=== PATIENT | female | born 1960 | race Caucasian/White ===

== ENCOUNTER 2021-09-06 12:54 | Outpatient (REF) | payer OTHER, SELFPAY | END 2021-09-06 12:55 | disposition home or self-care (01) | LOC: HO.MDS 12:54 | PROVIDERS: PCP Internal Medicine; Visit Provider Psychiatry & Neurology Neurology | DX: G35 Multiple sclerosis (principal) | CPT/HCPCS: 96365; J2930 ==

== ENCOUNTER 2021-09-07 11:37 | Outpatient (REF) | payer OTHER, SELFPAY ==
[2021-09-07 12:50] LABS: Blood Urea Nitrogen 18 mg/dL (9-16); Estimated Glomerular Filt Rate > 60
== END 2021-09-07 11:38 | disposition home or self-care (01) ==
LOC: HO.MDS 11:37
PROVIDERS: PCP Internal Medicine; Visit Provider Psychiatry & Neurology Neurology
DX: G35 Multiple sclerosis (principal)
CPT/HCPCS: 36415; 82565; 84520; 96365; J2930

== ENCOUNTER 2021-09-08 13:31 | Outpatient (REF) | payer OTHER, SELFPAY | END 2021-09-08 13:32 | disposition home or self-care (01) | LOC: HO.MDS 13:31 | PROVIDERS: Visit Provider Psychiatry & Neurology Neurology | DX: G35 Multiple sclerosis (principal) | CPT/HCPCS: 96365; J2930 ==

== ENCOUNTER 2021-09-11 08:33 | Outpatient (REF) | payer OTHER, SELFPAY ==
[2021-09-11 08:49] LABS: MANUAL DIFF FLAG NO
[2021-09-11 09:37] LABS: Appearance Urine CLEAR; Basophils Percent Auto 0.4 % (0-2); Color Urine YELLOW; Eosinophils Absolute Auto 0.4 X10*3/uL (0.0-0.4); Eosinophils Percent Auto 3.3 % (0-4); Glucose Urine UA NEG (NEG); Hematocrit 41.3 % (37.0-47.0); Hemoglobin 12.9 g/dl (12.0-16.0); Imm Gran Abs Auto 0.16 X10*3/uL (0.00-0.03); Imm Gran Pct Auto 1.4 % (0.0-0.4); Leukocyte Esterase Urine NEG (NEG); Lymphocytes Absolute Auto 4.9 X10*3/uL (1.2-4.9); Mean Corpuscular HGB Conc 31.2 g/dl (31.0-35.0); Mean Corpuscular Hemoglobin 28.3 pg (27.0-33.0); Mean Corpuscular Volume 90.6 fL (80.0-98.0); Mean Platelet Volume 9.7 fL (9.4-12.3); Monocytes Absolute Auto 0.7 X10*3/uL (0.1-1.2); Monocytes Percent Auto 5.8 % (2-11); NRBC Pct Auto 0.9 /100WBC (0.0-0.2); Neutrophils Absolute Auto 5.3 x10*3/uL (2.0-8.3); Neutrophils Percent Auto 46.1 % (45-73); Nitrite Urine NEG (NEG); Platelet Count 304 X10*3/uL (160-400); Red Blood Count 4.56 X10*6/uL (4.20-5.50); Red Cell Distribution Width 14.6 % (11.0-16.0); Urine Blood NEG (NEG); Urine Ketones NEG (NEG); Urine Protein NEG (NEG-TRACE); White Blood Count 11.4 X10*3/uL (4.8-10.8)
[2021-09-11 09:46] LABS: Alanine Aminotransferase 21 U/L (0-31); Albumin Level 3.7 g/dL (3.5-5.0); Alkaline Phosphatase 94 U/L (39-117); Anion Gap 11 (12-20); Aspartate Amino Transferase 14 U/L (5-31); Bilirubin Total 0.4 mg/dL (0.0-1.0); Blood Urea Nitrogen 16 mg/dL (9-16); Calcium 8.3 mg/dL (8.4-10.2); Carbon Dioxide 33 mmol/L (22-29); Chloride 103 mmol/L (96-108); Estimated Glomerular Filt Rate > 60; Glucose Random 104 mg/dL (60-115); Potassium 4.1 mmol/L (3.3-5.1); Sodium 143 mmol/L (135-145); Total Protein 6.6 g/dL (6.5-8.0)
== END 2021-09-11 08:34 | disposition home or self-care (01) ==
LOC: HO.LAB 08:33
PROVIDERS: PCP Internal Medicine; Visit Provider Psychiatry & Neurology Neurology
DX: G35 Multiple sclerosis (principal)
CPT/HCPCS: 36415; 80053; 81003; 85025

== ENCOUNTER 2021-09-15 14:13 | Outpatient (REF) | payer OTHER, SELFPAY ==
--- NOTE | ~2021-09-15 | MR_ITS ---
EXAMINATION: MR BRAIN WITHOUT AND WITH CONTRAST CLINICAL INFORMATION: Multiple sclerosis. COMPARISON: Brain MRI from 11/08/2012. CTA head from 09/14/2012. TECHNIQUE: MRI of the brain and cervical spine was obtained using routine sequences without and following the administration of 6.5 mL of Gadavist intravenous contrast. FINDINGS: Brain: There are multiple T2/FLAIR hyperintense lesions consistent with an underlying diagnosis of demyelination. This includes lesions within the subcortical, deep white matter, periventricular, callosal, brainstem, and cerebellar distributions. New Lesions: There appears to have been progression of lesions when compared to CT from 2012. No comparable MRI image is available. Enhancing Lesions: None. Restricted Diffusion: None. T1 Black Holes: Approximately 5-10. Volume Loss: Mild. Additional Findings: No evidence of edema or expansion of the optic nerves. No focal restricted diffusion is seen to suggest acute or subacute cerebral ischemia. No intracranial mass, intra-axial blood products, midline shift, or extra-axial collection is demonstrated. The ventricles and sulcal spaces appear normal. Normal arterial and venous vascular flow voids are present. No signal abnormalities within the superior sagittal or transverse sinuses. Complete opacification of the right maxillary sinus. Moderate mucosal thickening of the remaining paranasal sinuses. No signal abnormalities within the mastoids. Cervical Spine: Reversal the normal cervical lordosis. Minimal degenerative anterolisthesis of C3 on C4 and C4 on C5. Advanced degenerative disc disease at C5-C6 and C6-C7. Moderate degenerative disc disease at C4-C5. Associated mixed Modic type discogenic endplate changes including mild Modic type I discogenic edema from C4-C7. Mild marrow edema within the right-sided C4-C5 facets consistent with degenerative stress reaction. No additional suspicious marrow edema. The vertebral body heights are largely maintained. Faintly increased T2 signal within the right lateral cord at the level of C3. No additional spinal cord signal abnormalities. No abnormal contrast enhancement. Limited evaluation of the soft tissues of the neck without demonstrated abnormalities. The flow voids of the major cervical vessels are maintained. Normal appearance of the cervicomedullary junction and visualized posterior fossa. SPINAL LEVELS: C2-C3: Normal annular contour. There is mild right in the left uncovertebral joint arthropathy. There is severe right and mild left facet joint arthropathy. There is mild right and no left neural foraminal stenosis. There is no spinal canal stenosis. C3-C4: Mild disc-osteophyte complex. There is moderate left and mild right uncovertebral joint arthropathy. There is severe left and mild right facet joint arthropathy. There is severe left and mild right neural foraminal stenosis. There is no spinal canal stenosis. C4-C5: Mild disc-osteophyte complex. There is severe left and mild right uncovertebral joint arthropathy. There is severe left and mild right facet joint arthropathy. There is severe left and mild right neural foraminal stenosis. There is no spinal canal stenosis. C5-C6: Moderate disc-osteophyte complex. There is severe left and moderate right uncovertebral joint arthropathy. There is moderate bilateral facet joint arthropathy. There is severe left and moderate right neural foraminal stenosis. There is moderate spinal canal stenosis. C6-C7: Moderate disc-osteophyte complex. There is moderate bilateral uncovertebral joint arthropathy. There is mild bilateral facet joint arthropathy. There is moderate bilateral neural foraminal stenosis. There is moderate spinal canal stenosis. C7-T1: Mild disc-osteophyte complex. There is mild bilateral uncovertebral joint arthropathy. There is mild bilateral facet joint arthropathy. There is mild left and no right neural foraminal stenosis. There is no spinal canal stenosis. MR/MR cervical spine wo/w con IMPRESSION: 1. Moderate supratentorial and infratentorial white matter changes consistent with underlying diagnosis of demyelination in the appropriate clinical setting. The degree of these changes appears moderately progressed compared to CT evaluation from 2012. No comparable MRI images are available at this time. No restricted diffusion or enhancement to suggest active demyelination. 2. Faint T2 hyperintense lesion within the right lateral cord at the level of C3. No additional spinal cord signal abnormalities. 3. Moderate multilevel degenerative spondyloarthropathy of the cervical spine as described in detail above. Most notably, there is moderate spinal canal stenosis at C5-C6 and C6-C7. Moderate to severe neural foraminal stenoses from C3-C7.
[2021-09-15 14:29] LABS: COVID-19 Test Negative (Negative)
== END 2021-09-15 14:14 | disposition home or self-care (01) ==
LOC: HO.MRI 14:13
PROVIDERS: Visit Provider Psychiatry & Neurology Neurology
DX: G35 Multiple sclerosis (principal)
CPT/HCPCS: 36415; 70553; 72156; 87635; A9585; C9803

== ENCOUNTER 2022-03-16 16:21 | Outpatient (REF) | payer OTHER, SELFPAY ==
[2022-03-16 16:31] LABS: MANUAL DIFF FLAG NO
[2022-03-16 17:05] LABS: Basophils Percent Auto 0.5 % (0-2); Eosinophils Absolute Auto 0.2 X10*3/uL (0.0-0.4); Eosinophils Percent Auto 2.5 % (0-4); Hematocrit 40.6 % (37.0-47.0); Hemoglobin 12.9 g/dl (12.0-16.0); Imm Gran Abs Auto 0.03 X10*3/uL (0.00-0.03); Imm Gran Pct Auto 0.4 % (0.0-0.4); Lymphocytes Absolute Auto 2.9 X10*3/uL (1.2-4.9); Lymphocytes Percent Auto 36.9 % (20-40); Mean Corpuscular HGB Conc 31.8 g/dl (31.0-35.0); Mean Corpuscular Hemoglobin 28.5 pg (27.0-33.0); Mean Corpuscular Volume 89.6 fL (80.0-98.0); Mean Platelet Volume 9.8 fL (9.4-12.3); Monocytes Absolute Auto 0.6 X10*3/uL (0.1-1.2); Monocytes Percent Auto 7.1 % (2-11); Neutrophils Absolute Auto 4.2 x10*3/uL (2.0-8.3); Neutrophils Percent Auto 52.6 % (45-73); Platelet Count 278 X10*3/uL (160-400); Red Blood Count 4.53 X10*6/uL (4.20-5.50); Red Cell Distribution Width 14.9 % (11.0-16.0); White Blood Count 7.9 X10*3/uL (4.8-10.8)
[2022-03-25 21:41] LABS: JCV Antibody INDETERMINATE; JCV Index Value 0.22
[2022-03-25 22:22] LABS: JCV Ab Inhibition FINAL RSLT: NEGATIVE
== END 2022-03-16 16:22 | disposition home or self-care (01) ==
LOC: HO.LAB 16:21
PROVIDERS: PCP Internal Medicine; Visit Provider Psychiatry & Neurology Neurology
DX: G35 Multiple sclerosis (principal)
CPT/HCPCS: 36415; 85025; 86711

== ENCOUNTER 2023-03-22 15:44 | Outpatient (REF) | payer OTHER, SELFPAY ==
[2023-03-22 16:05] LABS: MANUAL DIFF FLAG NO
[2023-03-22 17:21] LABS: Basophils Absolute Auto 0.1 X10*3/uL (0.0-0.2); Basophils Percent Auto 0.6 % (0-2); Eosinophils Absolute Auto 0.3 X10*3/uL (0.0-0.4); Eosinophils Percent Auto 3.2 % (0-4); Hematocrit 39.7 % (37.0-47.0); Hemoglobin 12.5 g/dl (12.0-16.0); Imm Gran Abs Auto 0.04 X10*3/uL (0.00-0.03); Imm Gran Pct Auto 0.5 % (0.0-0.4); Lymphocytes Absolute Auto 3.7 X10*3/uL (1.2-4.9); Lymphocytes Percent Auto 42.5 % (20-40); Mean Corpuscular HGB Conc 31.5 g/dl (31.0-35.0); Mean Corpuscular Hemoglobin 28.5 pg (27.0-33.0); Mean Corpuscular Volume 90.6 fL (80.0-98.0); Mean Platelet Volume 10.4 fL (9.4-12.3); Monocytes Absolute Auto 0.6 X10*3/uL (0.1-1.2); Neutrophils Absolute Auto 4.1 x10*3/uL (2.0-8.3); Neutrophils Percent Auto 46.2 % (45-73); Platelet Count 249 X10*3/uL (160-400); Red Blood Count 4.38 X10*6/uL (4.20-5.50); Red Cell Distribution Width 14.9 % (11.0-16.0); White Blood Count 8.8 X10*3/uL (4.8-10.8)
[2023-03-22 17:31] LABS: Appearance Urine Clear; Color Urine Yellow; Glucose Urine UA Negative (Negative); Leukocyte Esterase Urine Negative (Negative); Nitrite Urine Negative (Negative); PH 5.5 (5.0-9.0); Urine Blood Negative (Negative); Urine Ketones Negative (Negative); Urine Protein Negative (Neg-Trace)
[2023-03-22 17:34] LABS: Bacteria Urine 1+ (None Seen); Hyaline Casts Urine 0-2 /LPF (0-2); RBC Urine 0-2 /HPF (0-2); Squamous Epithelial Cell Urine 0-2 /HPF (0-2); WBC Urine 0-5 /HPF (0-5)
== END 2023-03-22 15:45 | disposition home or self-care (01) ==
LOC: HO.LAB 15:44
PROVIDERS: PCP Internal Medicine; Visit Provider Psychiatry & Neurology Neurology
DX: G35 Multiple sclerosis (principal)
CPT/HCPCS: 36415; 81001; 85025

== ENCOUNTER 2023-04-20 14:16 | Outpatient (REF) | payer OTHER, SELFPAY ==
--- NOTE | ~2023-04-20 | MR_ITS ---
EXAMINATION: MR BRAIN WITHOUT AND WITH CONTRAST CLINICAL INFORMATION: Multiple sclerosis follow up study. Frequent falls. COMPARISON: Prior MRI dated 09/15/2021. TECHNIQUE: Multiplanar, multisequential imaging was obtained without and with intravenous administration of contrast. Intravenous contrast: Gadavist 6.5 mL. FINDINGS: The overall pattern of disease is without significant change. No new dominant white matter lesions are identified. Multiple lesions demonstrate T1 hypointensity, consistent with chronic demyelination. There is no abnormal parenchymal enhancement to suggest active inflammation. Volume loss again noted in the body of the corpus callosum with small callosal-septal interface lesions. No diffusion abnormalities are identified to suggest an acute infarct. No mass effect or midline shift is seen. No extra-axial fluid collections are seen. There is no abnormal enhancement. The gradient acquisition is normal. Moderate diffuse parenchymal volume loss again noted with ex vacuo dilatation of the ventricles. The craniovertebral junction, marrow signal, and remaining midline structures are normal. The orbits and pituitary axis structures appear normal. The major intracranial flow voids at the level of the grindstone of Be[place] are preserved. The dural venous sinus flow voids are maintained. The mastoid air cells are well aerated. There is severe inspissated mucosal opacification of the right maxillary sinus with chronic sclerotic wall thickening, also evident on the previous exam. Mild ethmoid and left sphenoid sinus mucosal thickening also noted. Multilevel ankylosis of the facet joints from the C3 through the C5 levels noted. There is a reversal normal cervical lordosis with a mild anterolisthesis at C4-C5. [id number] loss of disc height partially visualized at the C5-C6 level as well. MR/MR head/brain wo/w con IMPRESSION: No evidence of disease progression. No focal parenchymal enhancement to indicate active inflammation. Moderate generalized parenchymal volume loss, as on prior imaging. Severe chronic mucoid opacification of the right maxillary sinus with chronic sclerotic wall thickening.
== END 2023-04-20 14:17 | disposition home or self-care (01) ==
LOC: HO.MRI 14:16
PROVIDERS: PCP Internal Medicine; Visit Provider Psychiatry & Neurology Neurology
DX: G35 Multiple sclerosis (principal)
CPT/HCPCS: 70553; A9585

== ENCOUNTER 2023-05-22 09:35 | Outpatient (REF) | payer OTHER, SELFPAY ==
--- NOTE | ~2023-05-22 | XR_ITS ---
Examination: X-rays cervical, thoracic and lumbar spine INDICATION: Multiple sclerosis. COMPARISON: MRI of the cervical spine 09/15/2021 TECHNIQUE: 3 views of the cervical spine 2 views of the thoracic spine 3 views of the lumbar spine FINDINGS: There is very mild S-shaped scoliotic curvature in the thoracolumbar spine. Lumbar spine: 5 nonrib-bearing lumbar-type vertebral bodies. Moderate to severe degenerative disc disease at L5-S1 with mild degenerative disc disease throughout the remainder of the lumbar spine. Facet arthropathy in the lower lumbar spine. Thoracic spine: No acute fracture in the thoracic spine. Mild multilevel degenerative disc disease. Mediastinal structures and visualized lungs are unremarkable. Cervical spine: There is reversal of the normal cervical lordosis. There is 3 mm anterolisthesis of C4 on C5. Moderate multilevel degenerative disc disease with marginal osteophyte formation in the cervical spine, greatest in the lower cervical spine. Multilevel facet arthropathy. Lateral masses are symmetric. XR/XR cervical spine 2V IMPRESSION: 1. Moderate to severe degenerative disc disease at L5-S1. 2. Mild multilevel degenerative disc disease in the thoracic spine. 3. Reversal of the normal cervical lordosis. 4. Mild anterolisthesis of C4 on C5. 5. Moderate spondylosis in the cervical spine, greatest in the lower cervical spine. Multilevel facet arthropathy.
--- NOTE | ~2023-05-22 | XR_ITS ---
Examination: X-rays cervical, thoracic and lumbar spine INDICATION: Multiple sclerosis. COMPARISON: MRI of the cervical spine 09/15/2021 TECHNIQUE: 3 views of the cervical spine 2 views of the thoracic spine 3 views of the lumbar spine FINDINGS: There is very mild S-shaped scoliotic curvature in the thoracolumbar spine. Lumbar spine: 5 nonrib-bearing lumbar-type vertebral bodies. Moderate to severe degenerative disc disease at L5-S1 with mild degenerative disc disease throughout the remainder of the lumbar spine. Facet arthropathy in the lower lumbar spine. Thoracic spine: No acute fracture in the thoracic spine. Mild multilevel degenerative disc disease. Mediastinal structures and visualized lungs are unremarkable. Cervical spine: There is reversal of the normal cervical lordosis. There is 3 mm anterolisthesis of C4 on C5. Moderate multilevel degenerative disc disease with marginal osteophyte formation in the cervical spine, greatest in the lower cervical spine. Multilevel facet arthropathy. Lateral masses are symmetric. XR/XR thoracic spine 2V IMPRESSION: 1. Moderate to severe degenerative disc disease at L5-S1. 2. Mild multilevel degenerative disc disease in the thoracic spine. 3. Reversal of the normal cervical lordosis. 4. Mild anterolisthesis of C4 on C5. 5. Moderate spondylosis in the cervical spine, greatest in the lower cervical spine. Multilevel facet arthropathy.
--- NOTE | ~2023-05-22 | XR_ITS ---
Examination: X-rays cervical, thoracic and lumbar spine INDICATION: Multiple sclerosis. COMPARISON: MRI of the cervical spine 09/15/2021 TECHNIQUE: 3 views of the cervical spine 2 views of the thoracic spine 3 views of the lumbar spine FINDINGS: There is very mild S-shaped scoliotic curvature in the thoracolumbar spine. Lumbar spine: 5 nonrib-bearing lumbar-type vertebral bodies. Moderate to severe degenerative disc disease at L5-S1 with mild degenerative disc disease throughout the remainder of the lumbar spine. Facet arthropathy in the lower lumbar spine. Thoracic spine: No acute fracture in the thoracic spine. Mild multilevel degenerative disc disease. Mediastinal structures and visualized lungs are unremarkable. Cervical spine: There is reversal of the normal cervical lordosis. There is 3 mm anterolisthesis of C4 on C5. Moderate multilevel degenerative disc disease with marginal osteophyte formation in the cervical spine, greatest in the lower cervical spine. Multilevel facet arthropathy. Lateral masses are symmetric. XR/XR lumbar spine 2-3V IMPRESSION: 1. Moderate to severe degenerative disc disease at L5-S1. 2. Mild multilevel degenerative disc disease in the thoracic spine. 3. Reversal of the normal cervical lordosis. 4. Mild anterolisthesis of C4 on C5. 5. Moderate spondylosis in the cervical spine, greatest in the lower cervical spine. Multilevel facet arthropathy.
[2023-05-26 23:19] LABS: JCV Antibody NEGATIVE; JCV Index Value 0.19
== END 2023-05-22 09:36 | disposition home or self-care (01) ==
LOC: HO.LAB 09:35
PROVIDERS: Visit Provider Psychiatry & Neurology Neurology
DX: G35 Multiple sclerosis (principal)
CPT/HCPCS: 36415; 72040; 72070; 72100; 86711

== ENCOUNTER 2024-06-11 09:42 | Outpatient (REF) | payer OTHER, SELFPAY ==
--- NOTE | ~2024-06-11 | XR_ITS ---
EXAMINATION: XR DORSAL SPINE XR CERVICAL SPINE CLINICAL INFORMATION: Torticollis. COMPARISON: Multiple prior examinations including most recent cervical spine and dorsal spine series May 2023. TECHNIQUE: 5 views of the cervical spine. 3 views of the dorsal spine. FINDINGS: Cervical Spine: There is straightening and slight reversal of the cervical spine with loss of the usual cervical lordosis but unchanged. There is also convex right curvature at the thoracolumbar junction slightly increased compared to the prior likely related to projection or positioning The disc spaces and facet joints and right neural foramina are not well visualized given the projection and patient positioning obscuring evaluation of these portions of the spine. Persistent degenerative disc changes at C4-C5, C5-C6 and C6-C7, unchanged. Surrounding bones and soft tissues are unremarkable. Dorsal Spine: Vertebral bodies are normally aligned with normal height. Multilevel degenerative changes present, unchanged. Surrounding bone and soft tissues are unremarkable. XR/XR thoracic spine 2V IMPRESSION: CERVICAL SPINE: Multilevel degenerative changes of the cervical spine unchanged. Evaluation is partially limited because of projection and patient positioning. THORACIC SPINE: 1. Mild multilevel spondylosis of the thoracic spine, unchanged. 2. No acute abnormality. Electronically signed by: Natanael Chavis MD 07/04/2024 10:27 PM EDT
--- NOTE | ~2024-06-11 | XR_ITS ---
EXAMINATION: XR DORSAL SPINE XR CERVICAL SPINE CLINICAL INFORMATION: Torticollis. COMPARISON: Multiple prior examinations including most recent cervical spine and dorsal spine series May 2023. TECHNIQUE: 5 views of the cervical spine. 3 views of the dorsal spine. FINDINGS: Cervical Spine: There is straightening and slight reversal of the cervical spine with loss of the usual cervical lordosis but unchanged. There is also convex right curvature at the thoracolumbar junction slightly increased compared to the prior likely related to projection or positioning The disc spaces and facet joints and right neural foramina are not well visualized given the projection and patient positioning obscuring evaluation of these portions of the spine. Persistent degenerative disc changes at C4-C5, C5-C6 and C6-C7, unchanged. Surrounding bones and soft tissues are unremarkable. Dorsal Spine: Vertebral bodies are normally aligned with normal height. Multilevel degenerative changes present, unchanged. Surrounding bone and soft tissues are unremarkable. XR/XR cervical spine 5V IMPRESSION: CERVICAL SPINE: Multilevel degenerative changes of the cervical spine unchanged. Evaluation is partially limited because of projection and patient positioning. THORACIC SPINE: 1. Mild multilevel spondylosis of the thoracic spine, unchanged. 2. No acute abnormality. Electronically signed by: Natanael Chavis MD 07/04/2024 10:27 PM EDT
== END 2024-06-11 09:43 | disposition home or self-care (01) ==
LOC: HO.XRAY 09:42
PROVIDERS: PCP Internal Medicine; Visit Provider Psychiatry & Neurology Neurology
DX: M43.6 Torticollis (principal)
CPT/HCPCS: 72050; 72070

== ENCOUNTER 2025-09-09 09:32 | Outpatient (AMB) | payer OTHER, SELFPAY ==
--- OUTSIDE RECORDS SUMMARY | 2024-03-12 05:30 | XMS_ITS ---
Author Organization [facility] [address] Address [address] [place] [address] Care Team Providers Care Personal Fitness Manager Name Role Phone VERÓNICA JANSEN Unavailable [phone] Encounters Encounter Location Date Provider Diagnosis [facility] [address] [address] 03/12/2024 VERÓNICA JANSEN Plan Of Treatment No Information Progress Notes * Paige HADDADneDOB:[birth year] (65 yo F)Acc No.[id number]:03/12/2024 Patient: Maryse KUMAR Provider: Iman JANSEN NP :1960 A ge:63 Y S ex:Female Date:03/12/2024 Address: [facility] [id number] Subjective: * Chief Complaints: * * Medical History: Objective: * Vitals: Assessment: Plan: * Treatment: * Images: Billing Information: * Visit Code: * Procedure Codes: * Electronic signature of ARIANNA JANSEN on 09/09/2025 at 10:45 AM EST Sign off status: Pending * Provider: Iman JANSEN NP Date: 0 03/12/2024 Generated for Shelley dudley/Bonilla/eTransmitting on: 11/09/2024 10:45 AM EST
--- OUTSIDE RECORDS SUMMARY | 2024-08-06 06:39 | XMS_ITS | Encounter Summary ---
Author Organization [facility] Address [address] [place] [address] Care Team Providers Care Flow Nurse Name Role Phone Valeria Guerra MD Primary Care Provider [phone] Encounter Details Date Type Department Care Team (Late st Contact Info) Description 08/06/2024 7:39 AM EDT Hospital Encounter TH HISTORIC ENCOUNTERS [facility]AST[facility] CONVERSION ONLY Que Parikh MD [address] [place] [address] Social History Tobacco Use Types Packs/Day Years Used Date Smoking Tobacco: Never Smokeless Tobacco: Never Comments Unknown Sex and Gender Information Value Date Recorded Sex Assigned at Not on file Legal Sex Female 8:30 PM EST Gender Identity Not on file Sexual Orientation Not on file documented as of this encounter Plan of Treatment Not on file documented as of this encounter Goals Goal Patient Goal Type Associated Problems Recent Progress Patient-Stated? Author <enter goal here> General On track(10/29/20 11:12 AM EST) Yes Luda Gray, OT Note: I want more strength in my left hand documented as of this encounter Visit Diagnoses Not on filedocumented in this encounter Care Teams Flow Nurse Relationship Specialty Start Date End Date Valeria Guerra MD PCP - General Internal Medicine 06/03/21 09/18/24 documented as of this encounter
--- OUTSIDE RECORDS SUMMARY | 2025-03-14 08:00 | XMS_ITS ---
Author Organization Henri Diane III, MD Address [address] [place] [address] Care Team Providers Care Multi Slide Machine Tender Name Role Phone Valeria Guerra Primary Care Provider Henri Hong III [phone] Sami BOYD, [facility] Unavailable Dr. Henri Hong III Unavailable Allergies Allergen (clinical drug ingredient) Drug/Non Drug Allergy documented on EMR Reaction Allergy Type Onset Date Status amoxicillin Amoxicillin Rash Drug Allergy Act dilan REASON FOR VISIT multiple sclerosis Medications Medication SIG (Take, Route, Frequency, Duration) Notes Start Date End Date Status Provigil 200 MG 1 tablet in the morn ing Orally Twice a day Active Amitriptyline HCl 100 MG 1 tablet at bed time Orally Once a day Active Nuvigil 150 MG 1 tablet Orally Once a day Active ALPRAZolam 0.5 MG 1 tablet Orally Once a day Active Benadryl 25 MG 1 tablet as needed O rally prior to chemo Active Gabapentin 800 MG 1 capsule Orally Thr ee times a day Active Ampyra 10 MG 1 tablet Orally Twic e a day Active Metoprolol Tartrate 25 MG 1 tablet Orall y Twice a day Active Social History Tobacco Use: Social History Observation Description Date Details (start date - stop date) Never Smoker NA - NA Sex Assigned At : Social History Observation Description Sex Assigned At Female Tobacco Use/Smoking Question Answer Notes Patient is a nonsmoker Additional Findings: Tobacco Non-User Aggressive non-smoker Vital Signs Blood pressure systolic 148 mm Hg 03/14/20 25 Blood pressure diastolic 80 mm Hg 025 Heart Rate 100 /min 03/14/2025 Height 61in in 03/14/2025 Weight 147 lbs 03/14/2025 BMI 27.77 kg/m2 03/14/2025 Encounters Encounter Location Date Provider Diagnosis Henri Diane III, MD [address] [place] [address] [place] [address] 03/14/2025 Henri Diane Multiple sclerosis G 35 ; Cerebral aneurysm I67.1 ; Subarachnoid hemorrhage due to ruptured aneurysm I60.8 ; Labyrinthitis H83.09 ; Overweight E66.3 ; History of arthroplasty of left knee Z96.652 and Torticollis M43.6 Assessments Encounter Date Diagnosis (ICD Code) Assessment Notes Treat ment Notes Treatment Clinical Notes 03/14/2025 Multiple sclerosis (ICD-10 - G35) She was treated today with 300 mg of that drug intravenously over one hour without difficulty. She was observed afterwards and had no reactions. 03/14/2025 Cerebral aneurysm (ICD-10 - I67.1) She has had no symptoms from this. 03/14/2025 Subarachnoid hemorrhage due to ruptured aneurysm (ICD-10 - I60.8) She has had no further symptoms of headache or weakness suggestive of intracranial bleeding. 03/14/2025 Labyrinthitis (ICD-10 - H83.09) She has had very little vertigo lately and is doing quite well. She has medication to take if necessary. 03/14/2025 Overweight (ICD-10 - E66.3) Her body mass index is 28. She has gained 5 pounds.We discussed her weight loss strategy in her diet and nutrition. I recommended weight loss at a rate of one half of a pound per week through a diet restricted in fat calories and sodium. 03/14/2025 History of arthroplasty of left knee (ICD-10 - Z96.652) The recent surgery is healing well. 03/14/2025 Torticollis (ICD-10 - M43.6) She remains under treatment with a personal injury law specialist and a neurologist. Plan Of Treatment Medication Medication Name Sig Start Date Stop Date Notes Provigil 200 MG 1 tablet in the morn ing Orally Twice a day Amitriptyline HCl 100 MG 1 tablet at bed time Orally Once a day Nuvigil 150 MG 1 tablet Orally Once a day ALPRAZolam 0.5 MG 1 tablet Orally Once a day Benadryl 25 MG 1 tablet as needed O rally prior to chemo Gabapentin 800 MG 1 capsule Orally Thr ee times a day Ampyra 10 MG 1 tablet Orally Twice a day Metoprolol Tartrate 25 MG 1 tablet Orally Twice a day Next Appt Details Follow Up: 4 Weeks, Reason: OV, Tysabri Provider Name:Henri Diane , 10/07/2025 09:00:00 AM, [address] [place] [address] [address], [place], [address], Provider Name:Henri Diane , 11/04/2025 09:30:00 AM, [address] [place] [address] [address], [place], [address], Procedure Notes * Category Sub-Category Detail Notes Chemotherapy Start and End Time: start, 1:00 pm, end, 2:00 pm Site: left hand Consent: verbal consent was o btained prior to procedure Medications given: Tysabri 300 mg Monitored by: EMILI Bro port flush none route IV Progress Notes * Paige HADDADneDOB:[birth year] (64 yo F)Acc No.[id number]:03/14/2025 PROGRESS NOTE Patient: Maryse KUMAR Provider: Diane Diane MD :1960 A ge:64 Y S ex:Female Date:03/14/2025 Address:[address] [place] [address] [id number] Pcp:Valeria Guerra Subjective: * Chief Complaints: * M ultiple sclerosis * HPI: C OVID-19 Screening: She returns to the office for another intravenous dose of Tysabri monoclonal antibody therapy for chronic relapsing multiple sclerosis.She had no contraindications to treatment. She has been medically stable. She was treated tooday without incident. Questions H ave you had any new onset fever, chills, cough, congestion, sore throat, shortness of breath, muscle aches? N o * ROS: G eneral/Constitutional: pain L eft knee. C hills d enies. F atigue a dmits. F ever d enies. E NT: Decreased hearing d enies. R espiratory: Cough d enies. C ardiovascular: Chest pain with exertion d enies. D yspnea on exertion?denies. S hortness of breath d enies. G astrointestinal: Constipation o ccasional. D ecreased appetite d enies. D iarrhea d enies. H eartburn d enies. N ausea d enies. R ectal bleeding d enies. V omiting d enies. H ematology: bruising d enies. p etechiae d enies. S wollen glands n one have been noted. G enitourinary: Frequent urination a t night. M usculoskeletal: Muscle aches d enies. P ainful joints L eft knee.?Sciatica d enies. W eakness B oth lower extremities. S kin: Itching d enies. R jon d enies. S kin lesion(s)?denies. N eurologic: Difficulty speaking d enies. D izziness d enies.?Headache d enies. L ow back pain d enies. P sychiatric: Depressed mood d enies. * Medical History: * Surgical History: t ubal ligation 2 sections septoplasty, Dr. Cooley * Hospitalization/Major Diagno stic Procedure: D enies Past Hospitalization * Family History: F ather: , Parkinsons, PSP. M other: alive, Osteoarthritis. C hildren: alive.?Son(s): alive. D aughter(s): alive. 1 brother(s) , 1 sister(s) - healthy. 1 son(s) , 1 daughter(s) - healthy. . She has 2 children, Omid, and aDr who are healthy and well. She is not aware of any inherited family cancer syndromes. She is not aware of any family history of mental illness or substance use disorder or addictions. * Social History: T obacco Use: T obacco Use/Smoking P atient is a n onsmoker A dditional Findings: Tobacco Non-User A ggressive non-smoker S he has been to [place] for many years. She lives in [place]. 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. Her first granddaughter, Landry, was born to her daughter Paola in July 2021. * Medications: T akingALPRAZolam 0.5 MG Tablet 1 tablet Orally Once a day Benadryl 25 MG Tablet 1 tablet as needed Orally prior to chemo Ampyra 10 MG Tablet Extended Release 12 Hour 1 tablet Orally Twice a day Metoprolol Tartrate 25 MG Tablet 1 tablet Orally Twice a day Gabapentin 800 MG Tablet 1 capsule Orally Three times a day Nuvigil 150 MG Tablet 1 tablet Orally Once a day Provigil 200 MG Tablet 1 tablet in the morning Orally Twice a day Amitriptyline HCl 100 MG Tablet 1 tablet at bedtime Orally Once a day Medication List reviewed and reconciled with the patientTaking ALPRAZolam 0.5 MG Tablet 1 tablet Orally Once a day Taking Benadryl 25 MG Tablet 1 tablet as needed Orally prior to chemo Taking Ampyra 10 MG Tablet Extended Release 12 Hour 1 tablet Orally Twice a day Taking Metoprolol Tartrate 25 MG Tablet 1 tablet Orally Twice a day Taking Gabapentin 800 MG Tablet 1 capsule Orally Three times a day Taking Nuvigil 150 MG Tablet 1 tablet Orally Once a day Taking Provigil 200 MG Tablet 1 tablet in the morning Orally Twice a day Taking Amitriptyline HCl 100 MG Tablet 1 tablet at bedtime Orally Once a day Medication List reviewed and reconciled with the patient * Allergies: A moxicillin: Rash - Allergyno[Allergies Verified] Objective: * Vitals: H t: 61in, Wt: 147, BMI:27.77, BP: 148/80, HR: 100, Ht-cm: 154.94, Wt-k.68. * Examination: G eneral Examination: GENERAL APPEARANCE: p leasant, well nourished, well developed, in no acute distress, calm and relaxed, overweight, woman. HEAD: a traumatic, normocephalic. EYES: e ron, perrla, anicteric, conjugate. EARS: n ormal. NOSE: s eptum intact. ORAL CAVITY: n ormal, unremarkable. NECK/THYROID: n o jugular venous distention, no carotid bruit, thyroid normal, Pronounced torticollis to the left. LYMPH NODES: n o enlarged lymph nodes,spleen normal. SKIN: n o suspicious lesions, anicteric. HEART: n o clicks, gallops, murmurs, or rubs, regular rhythm, S1, S2 normal, no s3, or vascular bruits. LUNGS: c lear to auscultation . BREASTS: N ot examined. ABDOMEN: b owel sounds normal, no ascites, no organomegaly, no mass, overweight. RECTAL EXAM: n ot examined. MUSCULOSKELETAL: W eakness and spasticity of both lower extremities, uses cane and walker, Pronounced left deviating torticollis. PERIPHERAL PULSES: n ormal. NEUROLOGIC: a lert and oriented, cranial nerves 2-12 grossly intact, deep tendon reflexes 2+ symmetrical, motor strength normal extremities, sensory exam intact, Bilateral weakness both legs with muscle wasting and spasticity, use his device for walking. PSYCH: a lert, oriented. Assessment: * Assessment: 1. M ultiple sclerosis - G35 (Primary) N otes :She was treated today with 300 mg of that drug intravenously over one hour without difficulty. She was observed afterwards and had no reactions. 2 . C erebral aneurysm - I67.1 N otes :She has had no symptoms from this. 3 . S ubarachnoid hemorrhage due to ruptured aneurysm - I60.8 N otes :She has had no further symptoms of headache or weakness suggestive of intracranial bleeding. 4 . L abyrinthitis - H83.09 N otes :She has had very little vertigo lately and is doing quite well. She has medication to take if necessary. 5 . O verweight - E66.3 N otes :Her body mass index is 28. She has gained 5 pounds.We discussed her weight loss strategy in her diet and nutrition. I recommended weight loss at a rate of one half of a pound per week through a diet restricted in fat calories and sodium. 6 . H istory of arthroplasty of left knee - Z96.652 N otes :The recent surgery is healing well. 7 . T orticollis - M43.6 N otes :She remains under treatment with a personal injury law specialist and a neurologist. Plan: * Treatment: * Procedures: C hemotherapy: Start and End Time: s tart, 1:00 pm, end, 2:00 pm. Site: [facility]. Consent: v erbal consent was obtained prior to procedure.? Medications given: T ysabri 300 mg. Monitored by: EMILI Oshea. port flush n one. route I V. * Procedure Codes: 9 6413 CHEMO, IV INFUSION, 1 [id number] NATALIZUMAB INJECTION * Preventive Medicine: Counseling: C are goal follow-up plan: Counseling for abnormal BMI given Y es Above Normal BMI Follow-up D ietary management education, guidance, and counseling, Dietary needs education, Exercise promotion: strength training, Exercise promotion: stretching, Feeding regime, Giving encouragement to exercise, Lifestyle education regarding diet, Nutrition / feeding management, Nutrition therapy, Prescribed activity/exercise education, Prescribed diet education, Prescribed dietary intake, Special diet education, Weight monitoring , Intervention, Order not done: Medical or Other reason not done * Follow Up: 4 Weeks (Reason: OV, Tysabri) * Images: * Sign off status: Completed true * Provider: Diane Diane MD Date: 0 03/14/2025 Generated for Skyleri ng/Fahunterg/eTransmitting on: 1 11/09/2024 10:46 AM EST History and Physical Notes * HPI (History of Present Illness) Category Sub-Category Detail Notes COVID-19 Screening Questions Have you had any new onset fever, chills, cough, congestion, sore throat, shortness of breath, muscle aches?: No Examination Category Sub-Category Detail Notes General Examination GENERAL APPEARANCE: pleasant , well nourished, well developed, in no acute distress, calm and relaxed, overweight, woman HEAD: atraumatic, normocep halic EYES: eomi, perrla, anicte husam, conjugate EARS: normal NOSE: septum intact NECK/THYROID: no jugular venous di stention, no carotid bruit, thyroid normal, Pronounced torticollis to the left HEART: no clicks, gallops, murmurs, or rubs, regular rhythm, S1, S2 normal, no s3, or vascular bruits LUNGS: clear to auscultatio n ABDOMEN: bowel sounds normal, no ascites, no organomegaly, no mass, overweight NEUROLOGIC: alert and oriented, cranial nerves 2-12 grossly intact, deep tendon reflexes 2+ symmetrical, motor strength normal extremities, sensory exam intact, Bilateral weakness both legs with muscle wasting and spasticity, use his device for walking SKIN: no suspicious lesion s, anicteric PERIPHERAL PULSES: normal BREASTS: Not examined MUSCULOSKELETAL: Weakness and spastic ity of both lower extremities, uses cane and walker, Pronounced left deviating torticollis LYMPH NODES: no enlarged lymph no tyson,spleen normal RECTAL EXAM: not examined PSYCH: alert, oriented ORAL CAVITY: normal, unremarkable
--- OUTSIDE RECORDS SUMMARY | 2025-04-14 04:00 | XMS_ITS ---
Author Organization Henri Diane III, MD Address [address] [place] [address] Care Team Providers Care Geomorphology Teacher Name Role Phone Valeria Guerra Primary Care Provider Henri Hong III [phone] Sami BOYD, [facility] Unavailable Dr. Henri Hong III Unavailable Allergies Allergen (clinical drug ingredient) Drug/Non Drug Allergy documented on EMR Reaction Allergy Type Onset Date Status amoxicillin Amoxicillin Rash Drug Allergy Act dilan REASON FOR VISIT multiple sclerosis Medications Medication SIG (Take, Route, Frequency, Duration) Notes Start Date End Date Status Metoprolol Tartrate 25 MG 1 tablet Orall y Twice a day Active Amitriptyline HCl 100 MG 1 tablet at bed time Orally Once a day Active Provigil 200 MG 1 tablet in the morn ing Orally Twice a day Active Nuvigil 150 MG 1 tablet Orally Once a day Active Gabapentin 800 MG 1 capsule Orally Thr ee times a day Active Ampyra 10 MG 1 tablet Orally Twic e a day Active Benadryl 25 MG 1 tablet as needed O rally prior to chemo Active ALPRAZolam 0.5 MG 1 tablet Orally Once a day Active Social History Tobacco Use: Social History Observation Description Date Details (start date - stop date) Never Smoker NA - NA Sex Assigned At : Social History Observation Description Sex Assigned At Female Tobacco Use/Smoking Question Answer Notes Patient is a nonsmoker Additional Findings: Tobacco Non-User Aggressive non-smoker Vital Signs Blood pressure systolic 127 mm Hg 04/14/20 25 Blood pressure diastolic 71 mm Hg 025 Heart Rate 78 /min 04/14/2025 Height 61in in 04/14/2025 Weight 142 lbs 04/14/2025 BMI 26.83 kg/m2 04/14/2025 Encounters Encounter Location Date Provider Diagnosis Henri Diane III, MD [address] [place] [address] [place] [address] 04/14/2025 Henri Diane Multiple sclerosis G 35 ; Cerebral aneurysm I67.1 ; Subarachnoid hemorrhage due to ruptured aneurysm I60.8 ; Overweight E66.3 and Torticollis M43.6 Assessments Encounter Date Diagnosis (ICD Code) Assessment Notes Treatment Notes Treatment Clinical Notes 04/14/2025 Multiple sclerosis (ICD-10 - G35) She was treated today with 300 mg of that drug intravenously over one hour without difficulty. She was observed afterwards and had no reactions. 04/14/2025 Cerebral aneurysm (ICD-10 - I67.1) She has had no symptoms from this. 04/14/2025 Subarachnoid hemorrhage due to ruptured aneurysm (ICD-10 - I60.8) She has had no further symptoms of headache or weakness suggestive of intracranial bleeding. 04/14/2025 Overweight (ICD-10 - E66.3) Her body mass index is 28. She has gained 5 pounds.We discussed her weight loss strategy in her diet and nutrition. I recommended weight loss at a rate of one half of a pound per week through a diet restricted in fat calories and sodium. 04/14/2025 Torticollis (ICD-10 - M43.6) She remains under treatment with a developmental mathematics instructor and a neurologist. Plan Of Treatment Medication Medication Name Sig Start Date Stop Date Notes Metoprolol Tartrate 25 MG 1 tablet Orally Twice a day Amitriptyline HCl 100 MG 1 tablet at bed time Orally Once a day Provigil 200 MG 1 tablet in the morn ing Orally Twice a day Nuvigil 150 MG 1 tablet Orally Once a day Gabapentin 800 MG 1 capsule Orally Thr ee times a day Ampyra 10 MG 1 tablet Orally Twice a day Benadryl 25 MG 1 tablet as needed O rally prior to chemo ALPRAZolam 0.5 MG 1 tablet Orally Once a day Next Appt Details Follow Up: 4 weeks, Reason: Tysabri infusion no testing Provider Name:Henri Lund Roxi , 09/09/2025 10:45:00 AM, [address] [facility] [place], [place], [address], Provider Name:Henri Lund Roxi , 10/07/2025 09:00:00 AM, [address] [place] [address] [address] [place], [address], Provider Name:Henri Lund Roxi , 11/04/2025 09:30:00 AM, [address] [place] [address] [place] [place], [address], Procedure Notes * Category Sub-Category Detail Notes Chemotherapy Start and End Time: start, 9:00 am, end, 10:00 am Site: right hand Consent: verbal consent was o btained prior to procedure Medications given: Tysabri 300 mg Monitored by: EMILI Bro port flush none route IV Progress Notes * Paige HADDADneDOB:[birth year] (65 yo F)Acc No.[id number]:04/14/2025 PROGRESS NOTE Patient: Maryse KUMAR Provider: Diane Diane MD :1960 A ge:65 Y S ex:Female Date:04/14/2025 Address:[address] [place] [address] [id number] Pcp:Valeria Guerra Subjective: * Chief Complaints: * M ultiple sclerosis * HPI: C OVID-19 Screening: She returns for another dose of Tysabri monoclonal antibody therapy for chronic relapsing multiple sclerosis. She was treated today without incident. Questions H ave you had any new onset fever, chills, cough, congestion, sore throat, shortness of breath, muscle aches? N o * ROS: G eneral/Constitutional: pain o nly normal aches and pains. C hills d enies.?Fatigue a dmits. F ever d enies. E [...] have been noted. G enitourinary: Frequent urination d enies. M usculoskeletal: Muscle aches d enies. P ainful joints d enies. S ciatica d enies. W eakness B oth lower extremities uses cane. S kin: Itching d enies. R jon [...] . She has 2 children, Omid, and Dar who are healthy and well. She is [...] Arlyn for many years. She lives in [place]. 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 Her first granddaughter, Landry, was born to [...] Objective: * Vitals: H t: 61in, Wt: 142, BMI:26.83, BP: 127/71, HR: 78, Ht-cm: 154.94, Wt-k.41. * Examination: G eneral Examination: GENERAL APPEARANCE: p leasant, well nourished, well developed, in no acute distress, calm and relaxed, overweight. HEAD: a traumatic, normocephalic. EYES: e ron, perrla, anicteric, conjugate. EARS: n ormal. NOSE: s eptum intact. ORAL CAVITY: n ormal, unremarkable. NECK/THYROID: n o jugular venous distention, no carotid bruit, thyroid normal. LYMPH NODES: n o enlarged lymph nodes,spleen normal. SKIN: n o suspicious lesions, anicteric. HEART: n o clicks, gallops, murmurs, or rubs, regular rhythm, S1, S2 normal, no s3, or vascular bruits. LUNGS: c lear to auscultation . BREASTS: N ot examined. ABDOMEN: b owel sounds normal, no ascites, no organomegaly, no mass. RECTAL EXAM: n ot examined. MUSCULOSKELETAL: M uscle wasting. PERIPHERAL PULSES: n ormal. NEUROLOGIC: a lert and oriented, cranial nerves 2-12 grossly intact, deep tendon reflexes 2+ symmetrical, motor strength normal upper extremities, sensory exam intact, Bilateral lower extremity weakness with spasticity, left sided leaning torticollis. PSYCH: a lert, oriented. Assessment: * Assessment: [...] weakness suggestive of intracranial bleeding. 4 . O verweight - E66.3 N otes :Her body mass index is 28. She has gained 5 pounds.We discussed her weight loss strategy in her diet and nutrition. I recommended weight loss at a rate of one half of a pound per week through a diet restricted in fat calories and sodium. 5 . T orticollis - M43.6 N otes :She remains under treatment with a developmental mathematics instructor and a neurologist. Plan: * Treatment: * Procedures: C hemotherapy: Start and End Time: s tart, 9:00 am, end, 10:00 am. Site: [facility]. Consent: v erbal consent was obtained prior to procedure.? Medications given: T ysabri 300 mg. Monitored by: EMILI Oshea. port flush n one. route I V. * Procedure Codes: 9 6413 CHEMO, IV INFUSION, 1 [id number] NATALIZUMAB INJECTION * Preventive Medicine: Counseling: C [...] reason not done * Follow Up: 4 weeks (Reason: Tysabri infusion no testing) * Images: * Sign off status: Completed true * Provider: Diane Diane MD Date: 0 04/14/2025 Generated for Skyleri octavia/Bonilla/eTransmitting on: 11/09/2024 10:44 AM EST History and Physical Notes * HPI (History of Present Illness) Category Sub-Category Detail Notes COVID-19 Screening Questions Have you had any new onset fever, chills, cough, congestion, sore throat, shortness of breath, muscle aches?: No Examination Category Sub-Category Detail Notes General Examination GENERAL APPEARANCE: pleasant , well nourished, well developed, in no acute distress, calm and relaxed, overweight HEAD: atraumatic, normocep halic EYES: eomi, perrla, anicte husam, conjugate EARS: normal NOSE: septum intact NECK/THYROID: no jugular venous di stention, no carotid bruit, thyroid normal HEART: no clicks, gallops, murmurs, or rubs, regular rhythm, S1, S2 normal, no s3, or vascular bruits LUNGS: clear to auscultatio n ABDOMEN: bowel sounds normal, no ascites, no organomegaly, no mass NEUROLOGIC: alert and oriented, cranial nerves 2-12 grossly intact, deep tendon reflexes 2+ symmetrical, motor strength normal upper extremities, sensory exam intact, Bilateral lower extremity weakness with spasticity, left sided leaning torticollis SKIN: no suspicious lesion s, anicteric PERIPHERAL PULSES: normal BREASTS: Not examined MUSCULOSKELETAL: Muscle wasting LYMPH NODES: no enlarged lymph no tyson,spleen normal RECTAL EXAM: not examined PSYCH: alert, oriented ORAL CAVITY: normal, unremarkable
--- OUTSIDE RECORDS SUMMARY | 2025-05-12 12:30 | XMS_ITS ---
Author Organization Henri Diane III, MD Address [address] [place] [address] Care Team Providers Care Borough Coordinator Name Role Phone Valeria Guerra Primary Care Provider Henri Hong III [phone] Sami BOYD, [facility] Unavailable Dr. Henri Hong III [phone] REASON FOR VISIT multiple sclerosis Social History Sex Assigned At : Social History Observation Description Sex Assigned At Female Encounters Encounter Location Date Provider Diagnosis Henri Diane III, MD [address] [place] [address] [place] [address] 05/12/2025 Henri Diane Plan Of Treatment Next Appt Details Provider Name:Henri Diane , 09/09/2025 10:45:00 AM, [address] [place] [address] [place] [place], [address], Provider Name:Henri Diane , 10/07/2025 09:00:00 AM, [address] [place] [address] [place] [place], [address], Provider Name:Henri Diane , 11/04/2025 09:30:00 AM, [address] [place] [address] [address] [place], [address], Progress Notes * Paige HADDADneDOB:[birth year] (65 yo F)Acc No.[id number]:05/12/2025 PROGRESS NOTE Patient: Maryse KUMAR Provider: Diane Diane MD :1960 A ge:65 Y S ex:Female Date:05/12/2025 Address:[address] [place], [place] [phone] Pcp:Valeria Guerra Subjective: * Chief Complaints: * 1 . Multiple sclerosis. * Medical History: Objective: * Vitals: Assessment: Plan: * Treatment: * Images: * The named appointment provid er may or may not be the originator of this progress note, and it is not deemed complete until electronically signed by the appointment provider. Sign off status: Pending * Provider: Diane Diane MD Date: 0 05/12/2025 Generated for Shelley dudley/Bonilla/eTransmitting on: 1 11/09/2024 10:44 AM EST
--- OUTSIDE RECORDS SUMMARY | 2025-05-19 04:00 | XMS_ITS ---
Author Organization Henri Diane III, MD Address [address] [facility] [place] [address] Care Team Providers Care Assessment Specialist Name Role Phone Valeria Guerra Primary Care Provider Henri Hong III [phone] Sami BOYD, [facility] Unavailable Dr. Henri Hong III Unavailable Allergies Allergen (clinical drug ingredient) Drug/Non Drug Allergy documented on EMR Reaction Allergy Type Onset Date Status amoxicillin Amoxicillin Rash Drug Allergy Act dilan REASON FOR VISIT multiple sclerosis Medications Medication SIG (Take, Route, Frequency, Duration) Notes Start Date End Date Status Ampyra 10 MG 1 tablet Orally Twic e a day Active Metoprolol Tartrate 25 MG 1 tablet Orall y Twice a day Active Gabapentin 800 MG 1 capsule Orally Thr ee times a day Active Nuvigil 150 MG 1 tablet Orally Once a day Active Provigil 200 MG 1 tablet in the morn ing Orally Twice a day Active ALPRAZolam 0.5 MG 1 tablet Orally Once a day Active Benadryl 25 MG 1 tablet as needed O rally prior to chemo Active Amitriptyline HCl 100 MG 1 tablet at bed time Orally Once a day Active Social History Tobacco Use: Social History Observation Description Date Details (start date - stop date) Never Smoker NA - NA Sex Assigned At : Social History Observation Description Sex Assigned At Female Tobacco Use/Smoking Question Answer Notes Patient is a nonsmoker Additional Findings: Tobacco Non-User Aggressive non-smoker Vital Signs Blood pressure systolic 129 mm Hg 05/19/20 25 Blood pressure diastolic 68 mm Hg 025 Heart Rate 82 /min 05/19/2025 Height 61in in 05/19/2025 Weight 145 lbs 05/19/2025 BMI 27.39 kg/m2 05/19/2025 Encounters Encounter Location Date Provider Diagnosis Henri Diane III, MD [address] [place] [address] [place] [address] 05/19/2025 Henri Diane Multiple sclerosis G 35 ; Cerebral aneurysm I67.1 ; Subarachnoid hemorrhage due to ruptured aneurysm I60.8 ; Labyrinthitis H83.09 ; History of arthroplasty of left knee Z96.652 and Torticollis M43.6 Assessments Encounter Date Diagnosis (ICD Code) Assessment Notes Treat ment Notes Treatment Clinical Notes 05/19/2025 Multiple sclerosis (ICD-10 - G35) She was treated today with 300 mg of that drug intravenously over one hour without difficulty. She was observed afterwards and had no reactions. 05/19/2025 Cerebral aneurysm (ICD-10 - I67.1) She has had no symptoms from this. 05/19/2025 Subarachnoid hemorrhage due to ruptured aneurysm (ICD-10 - I60.8) She has had no further symptoms of headache or weakness suggestive of intracranial bleeding. 05/19/2025 Labyrinthitis (ICD-10 - H83.09) She has had very little vertigo lately and is doing quite well. She has medication to take if necessary. 05/19/2025 History of arthroplasty of left knee (ICD-10 - Z96.652) The recent surgery is healing well. 05/19/2025 Torticollis (ICD-10 - M43.6) She remains under treatment with a clinical trials manager and a neurologist. Plan Of Treatment Medication Medication Name Sig Start Date Stop Date Notes Ampyra 10 MG 1 tablet Orally Twice a day Metoprolol Tartrate 25 MG 1 tablet Orally Twice a day Gabapentin 800 MG 1 capsule Orally Thr ee times a day Nuvigil 150 MG 1 tablet Orally Once a day Provigil 200 MG 1 tablet in the morn ing Orally Twice a day ALPRAZolam 0.5 MG 1 tablet Orally Once a day Benadryl 25 MG 1 tablet as needed O rally prior to chemo Amitriptyline HCl 100 MG 1 tablet at bed time Orally Once a day Next Appt Details Follow Up: 4 Weeks, Reason: Tysabri no tests Provider Name:Henri Diane , 10/07/2025 09:00:00 AM, [address] [place] [address] [address], [place], [address], Provider Name:Henri Lund Diane , 11/04/2025 09:30:00 AM, [address] [place] [address] [address], [place], [address], Progress Notes * Paige HADDADneDOB:[birth year] (65 yo F)Acc No.[id number]:05/19/2025 PROGRESS NOTE Patient: Maryse KUMAR Provider: Diane Diane MD :1960 A ge:65 Y S ex:Female Date:05/19/2025 Address:[address] [place] [address] [id number] Pcp:Valeria Guerra Subjective: * Chief Complaints: * M ultiple sclerosis * HPI: C OVID-19 Screening: She returns to the office today for another infusion of Tysabri monoclonal antibody therapy for chronic relapsing multiple sclerosis. There was no contraindication to treatment. Treatment was well and there were no incident. She will return in 1 month. Questions H ave you had any new onset fever, chills, cough, congestion, sore throat, shortness of breath, muscle aches? N o * ROS: G eneral/Constitutional: pain T orticollis, otherwise only normal aches and pains.?Chills d enies. F atigue a dmits. F [...] urination d enies. M usculoskeletal: Muscle aches N ivy with torticollis head turned to the left. P ainful joints d enies. S ciatica d enies. W eakness d enies. ? S kin: Itching d enies. R jon [...] Arlyn for many years. She lives in [place]. 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 Her first granddaughter, Landry, [...] Objective: * Vitals: H t: 61in, Wt: 145, BMI:27.39, BP: 129/68, HR: 82, Ht-cm: 154.94, Wt-k.77. * Examination: G eneral Examination: GENERAL APPEARANCE: [...] overweight. RECTAL EXAM: n ot examined. MUSCULOSKELETAL: M uscle wasting both legs, torticollis to the left,. PERIPHERAL PULSES: n ormal. NEUROLOGIC: a lert and oriented, cranial nerves 2-12 grossly intact, deep tendon reflexes 2+ symmetrical, motor strength normal upper extremities, sensory exam intact, Bilateral lower extremity weakness with spasticity, uses cane. PSYCH: a lert, oriented. Assessment: * Assessment: [...] medication to take if necessary. 5 . H istory of arthroplasty of left knee - Z96.652 N otes :The recent surgery is healing well. 6 . T orticollis - M43.6 N otes :She remains under treatment with a clinical trials manager and a neurologist. Plan: * Treatment: * Procedure Codes: 9 6413 CHEMO, IV INFUSION, 1 [id number] NATALIZUMAB INJECTION * Preventive Medicine: Counseling: C are goal follow-up plan: Counseling for abnormal BMI given Y es Above Normal BMI Follow-up D ietary management education, guidance, and counseling, Dietary needs education * Follow Up: 4 Weeks (Reason: Tysabri no tests) * Images: * Sign off status: Completed true * Provider: Diane Diane MD Date: 0 05/19/2025 Generated for Shelley dudley/Bonilla/Tonosmitting on: 11/09/2024 10:45 AM EST History and Physical Notes * [...] intact, Bilateral lower extremity weakness with spasticity, uses cane SKIN: no suspicious lesion s, anicteric PERIPHERAL PULSES: normal BREASTS: Not examined MUSCULOSKELETAL: Muscle wasting both legs, torticollis to the left, LYMPH NODES: no enlarged lymph no tyson,spleen normal RECTAL EXAM: not examined PSYCH: alert, oriented ORAL CAVITY: normal, unremarkable
--- OUTSIDE RECORDS SUMMARY | 2025-06-17 12:45 | XMS_ITS ---
Author Organization Henri Diane III, MD Address [address] [facility] [address] Care Team Providers Care Chemical Pathologist Name Role Phone Valeria Guerra Primary Care Provider Henri Hong III [phone] Sami BOYD, [facility] Unavailable Dr. Henri Hong III [phone] REASON FOR VISIT multiple sclerosis Social History Sex Assigned At : Social History Observation Description Sex Assigned At Female Encounters Encounter Location Date Provider Diagnosis Henri Diane III, MD [address] [place] [address] [place] [address] 06/17/2025 Henri Diane Plan Of Treatment Next Appt Details Provider Name:Henri Diane , 09/09/2025 10:45:00 AM, [address] [place] [address] [place], [address], Provider Name:Henri Diane , 10/07/2025 09:00:00 AM, [address] [place] [address] [place], [address], Provider Name:Henri Diane , 11/04/2025 09:30:00 AM, [address] [place] [address] [place], [address], Progress Notes * Paige HADDADneDOB:[birth year] (65 yo F)Acc No.[id number]:06/17/2025 PROGRESS NOTE Patient: Maryse KUMAR Provider: Diane Diane MD :1960 A ge:65 Y S ex:Female Date:06/17/2025 Address:[address] [place], [place] [id number] Pcp:Valeria Guerra Subjective: * Chief Complaints: * [...] * Provider: Diane Diane MD Date: 0 06/17/2025 Generated for Shelley dudley/Bonilla/eTallegrasmitting on: 1 11/09/2024 10:44 AM EST
--- OUTSIDE RECORDS SUMMARY | 2025-06-18 04:00 | XMS_ITS ---
Author Organization Henri Diane III, MD Address [address] [facility] [place] [address] Care Team Providers Care Doctor Of Dental Surgery Name Role Phone Valeria Guerra Primary Care Provider Henri Hong III [phone] Sami BOYD, [facility] Unavailable Dr. Henri Hong III Unavailable [phone] Allergies Allergen (clinical drug ingredient) Drug/Non Drug Allergy documented on EMR Reaction Allergy Type Onset Date Status amoxicillin Amoxicillin Rash Drug Allergy Act dilan REASON FOR VISIT multiple sclerosis Medications Medication SIG (Take, Route, Frequency, Duration) Notes Start Date End Date Status Gabapentin 800 MG 1 capsule Orally Thr ee times a day Active Metoprolol Tartrate 25 MG 1 tablet Orall y Twice a day Active Provigil 200 MG 1 tablet in the morn ing Orally Twice a day Active Nuvigil 150 MG 1 tablet Orally Once a day Active Amitriptyline HCl 100 MG 1 tablet at bed time Orally Once a day Active Ampyra 10 MG 1 [...] Aggressive non-smoker Vital Signs Blood pressure systolic 128 mm Hg 06/18/20 25 Blood pressure diastolic 72 mm Hg 025 Heart Rate 86 /min 06/18/2025 Height 61in in 06/18/2025 Weight 146 lbs 06/18/2025 BMI 27.58 kg/m2 06/18/2025 Encounters Encounter Location Date Provider Diagnosis Henri Diane III, MD [address] [place] [address] [place] [address] 06/18/2025 Henri Diane Multiple sclerosis G 35 ; Cerebral aneurysm I67.1 ; Subarachnoid hemorrhage due to ruptured aneurysm I60.8 ; Overweight E66.3 ; History of arthroplasty of left knee Z96.652 and Torticollis M43.6 Assessments Encounter Date Diagnosis (ICD Code) Assessment Notes Treatment Notes Treatment Clinical Notes 06/18/2025 Multiple sclerosis (ICD-10 - G35) She was treated today with 300 mg of that drug intravenously over one hour without difficulty. She was observed afterwards and had no reactions. 06/18/2025 Cerebral aneurysm (ICD-10 - I67.1) She has had no symptoms from this. 06/18/2025 Subarachnoid hemorrhage due to ruptured aneurysm (ICD-10 - I60.8) She has had no further symptoms of headache or weakness suggestive of intracranial bleeding. 06/18/2025 Overweight (ICD-10 - E66.3) Her body mass index is 28. She has gained 5 pounds.We discussed her weight loss strategy in her diet and nutrition. I recommended weight loss at a rate of one half of a pound per week through a diet restricted in fat calories and sodium. 06/18/2025 History of arthroplasty of left knee (ICD-10 - Z96.652) The recent surgery is healing well. 06/18/2025 Torticollis (ICD-10 - M43.6) She remains under treatment with a tangled yarn worker and a neurologist. Plan Of Treatment Medication Medication Name Sig Start Date Stop Date Notes Gabapentin 800 MG 1 capsule Orally Thr ee times a day Metoprolol Tartrate 25 MG 1 tablet Orally Twice a day Provigil 200 MG 1 tablet in the morn ing Orally Twice a day Nuvigil 150 MG 1 tablet Orally Once a day Amitriptyline HCl 100 MG 1 tablet at bed time Orally Once a day Ampyra 10 MG 1 tablet Orally Twice a day Benadryl 25 MG 1 tablet as needed O rally prior to chemo ALPRAZolam 0.5 MG 1 tablet Orally Once a day Next Appt Details Follow Up: 4 Weeks, Reason: Tysabri no tests Provider Name:Henri Lund Roxi , 09/09/2025 10:45:00 AM, [address] [facility] [address], [place], [address], Provider Name:Henri Lund Roxi , 10/07/2025 09:00:00 AM, [address] [facility] [address], [place], [address], Provider Name:Henri Lund Roxi , 11/04/2025 09:30:00 AM, [address] [place] [address] [address], [place], [address], Procedure Notes * Category Sub-Category Detail Notes Chemotherapy Start and End Time: start, 9:00 am, end, 10:00 am Site: right hand Consent: verbal consent was o btained prior to procedure Medications given: Tysabri 300 mg Monitored by: EMILI Bro route IV Progress Notes * Paige TATUMneDOB:[birth year] (65 yo F)Acc No.[id number]:06/18/2025 PROGRESS NOTE Patient: Maryse KUMAR Provider: Diane Diane MD :1960 A ge:65 Y S ex:Female Date:06/18/2025 Address:[address] [place] [address] [id number] Pcp:Valeria Guerra Subjective: * Chief Complaints: * M ultiple sclerosis * HPI: v : She returns to the office for another intravenous dose of Tysabri monoclonal antibody therapy for chronic relapsing multiple sclerosis. Since her last visit she has been well. * ROS: G eneral/Constitutional: pain L eft knee, otherwise only normal aches and pains.?Chills d [...] ciatica d enies. W eakness B oth legs. S kin: Itching d enies. R jon [...] Arlyn for many years. She lives in [place]. 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 Her first granddaughter, Landry, was born to [...] Objective: * Vitals: H t: 61in, Wt: 146, BMI:27.58, BP: 128/72, HR: 86, Ht-cm: 154.94, Wt-k.22. * Examination: G eneral Examination: GENERAL APPEARANCE: p leasant, well nourished, well developed, in no acute distress, calm and relaxed: overweight: woman. HEAD: a traumatic, normocephalic. EYES: e ron, perrla, anicteric, conjugate. EARS: n ormal. NOSE: s eptum intact. ORAL CAVITY: n ormal, unremarkable. NECK/THYROID: n o jugular venous distention, no carotid bruit, thyroid normal, Torticollis to the left. LYMPH NODES: n o enlarged lymph nodes,spleen normal. SKIN: n o suspicious lesions, anicteric. HEART: n o clicks, gallops, murmurs, or rubs, regular rhythm, S1, S2 normal, no s3, or vascular bruits. LUNGS: c lear to auscultation . BREASTS: N ot examined. ABDOMEN: b owel sounds normal, no ascites, no organomegaly, no mass: overweight. RECTAL EXAM: n ot examined. MUSCULOSKELETAL: no clubbing, cyanosis or edema, Muscle wasting both legs. PERIPHERAL PULSES: n ormal. NEUROLOGIC: a lert and oriented, cranial nerves 2-12 grossly intact, deep tendon reflexes 2+ symmetrical, motor strength normal upper extremities, sensory exam intact, Bilateral lower extremity, spasticity and weakness, uses cane. PSYCH: a lert, oriented: thought process logical, goal directed: alert, oriented. Assessment: * Assessment: 1. M ultiple [...] in fat calories and sodium. 5 . H istory of arthroplasty of left knee - Z96.652 N otes :The recent surgery is healing well. 6 . T orticollis - M43.6 N otes :She remains under treatment with a tangled yarn worker and a neurologist. Plan: * Treatment: * Procedures: C hemotherapy: Start and End Time: s tart, 9:00 am, end, 10:00 am. Site: [facility]. Consent: v erbal consent was obtained prior to procedure.? Medications given: T ysabri 300 mg. Monitored by: EMILI Oshea. route I V. * Procedure Codes: 9 6413 CHEMO, IV INFUSION, 1 [id number] NATALIZUMAB INJECTION * Preventive Medicine: Counseling: C [...] done * Follow Up: 4 Weeks (Reason: Tysabri no tests) * Images: * Sign off status: Completed true * Provider: Diane Diane MD Date: 0 06/18/2025 Generated for Shelley dudley/Bonilla/Evelyne on: 11/09/2024 10:44 AM EST History and Physical Notes * Examination Category Sub-Category Detail Notes General Examination GENERAL APPEARANCE: pleasant , well nourished, well developed, in no acute distress, calm and relaxed: overweight: woman HEAD: atraumatic, normocep halic EYES: eomi, perrla, anicte husam, conjugate EARS: normal NOSE: septum intact NECK/THYROID: no jugular venous di stention, no carotid bruit, thyroid normal, Torticollis to the left HEART: no clicks, gallops, murmurs, or rubs, regular rhythm, S1, S2 normal, no s3, or vascular bruits LUNGS: clear to auscultatio n ABDOMEN: bowel sounds normal, no ascites, no organomegaly, no mass: overweight NEUROLOGIC: alert and oriented, cranial nerves 2-12 grossly intact, deep tendon reflexes 2+ symmetrical, motor strength normal upper extremities, sensory exam intact, Bilateral lower extremity, spasticity and weakness, uses cane SKIN: no suspicious lesion s, anicteric PERIPHERAL PULSES: normal BREASTS: Not examined MUSCULOSKELETAL: no clubbing, cyanosi s or edema, Muscle wasting both legs LYMPH NODES: no enlarged lymph no tyson,spleen normal RECTAL EXAM: not examined PSYCH: alert, oriented: tho ught process logical, goal directed: alert, oriented ORAL CAVITY: normal, unremarkable
--- OUTSIDE RECORDS SUMMARY | 2025-06-18 12:15 | XMS_ITS ---
Author Organization Henri Diane III, MD Address [address] [place] [address] [place] [address] Care Team Providers Care Digital Art Director Name Role Phone Valeria Guerra Primary Care Provider Henri Hong III [phone] Sami BOYD, [facility] Unavailable Dr. Henri Hong III REASON FOR VISIT multiple sclerosis Social History Sex Assigned At : Social History Observation Description Sex Assigned At Female Encounters Encounter Location Date Provider Diagnosis Henri Diane III, MD [address] [place] [address] [place] [address] 06/18/2025 Henri Diane Plan Of Treatment Next Appt Details Provider Name:Henri Diane , 10/07/2025 09:00:00 AM, [address] [place] [address] [place], [address], Provider Name:Henri Diane , 11/04/2025 09:30:00 AM, [address] [place] [address] [place] [place], [address], Progress Notes * Lorenzo HADDADOB:[birth year] (65 yo F)Acc No.[id number]:06/18/2025 PROGRESS NOTE Patient: Catherine Maryse GUTIERREZ Provider: Diane Diane MD :1960 A ge:65 Y S ex:Female Date:06/18/2025 Address:[id number] Pcp:Valeria Guerra Subjective: * Chief Complaints: * [...] 0 06/18/2025 Generated for Shelley dudley/Bonilla/Evelyne on: 1 11/09/2024 10:46 AM EST
--- OUTSIDE RECORDS SUMMARY | 2025-07-08 04:15 | XMS_ITS ---
Author Organization [facility] Address [address] [place] [address] Care Team Providers Care Train Inspector Name Role Phone Valeria Guerra Primary Care Provider Niya Tay Unavailable [phone] Encounters Encounter Location Date Provider Diagnosis [address] [address] 07/08/2025 Niya Hull Plan Of Treatment Next Appt Details Provider Name:Niya powell, 09/19/2025 09:30:00 AM, [address] [place] [address], [address], Progress Notes * KAYLIPaige OGLESBYneDOB:[birth year] (65 yo F)Acc No.[id number]:07/08/2025 Progress Note Patient: Maryse KUMAR Provider: Lisa Hull DPM :1960 A ge:65 Y S ex:Female Date:07/08/2025 Address: [address] [id number] Pcp:Valeria Guerra Subjective: * Chief Complaints: * * Medical History: Objective: * Vitals: Assessment: Plan: * Treatment: * Images: * The named appointment provid er may or may not be the originator of this progress note, and it is not deemed complete until electronically signed by the appointment provider. Sign off status: Pending * Provider: Lisa Hull DPM Date: 0 07/08/2025 Generated for Shelley dudley/Bonilla/Evelyne on: 1 11/09/2024 10:46 AM EST
--- OUTSIDE RECORDS SUMMARY | 2025-07-15 04:00 | XMS_ITS ---
Author Organization Henri Diane III, MD Address [address] [place] [address] Care Team Providers Care Wood Fuel Pelletizer Name Role Phone Valeria Guerra Primary Care Provider Henri Hong III [phone] Sami BOYD, [facility] Unavailable Dr. [...] bed time Orally Once a day Active ALPRAZolam 0.5 MG 1 tablet Orally Once a day Active Benadryl 25 MG 1 tablet as needed O rally prior to chemo Active Ampyra 10 MG 1 tablet Orally [...] Signs Blood pressure systolic 128 mm Hg 07/15/20 25 Blood pressure diastolic 75 mm Hg 025 Heart Rate 81 /min 07/15/2025 Height 61in in 07/15/2025 Weight 146 lbs 07/15/2025 BMI 27.58 kg/m2 07/15/2025 Encounters Encounter Location Date Provider Diagnosis Henri Diane III, MD [address] [place] [address] [place], [place] [address] 07/15/2025 Henri Diane Multiple sclerosis G 35 ; Cerebral aneurysm I67.1 ; Labyrinthitis H83.09 ; Torticollis M43.6 and History of arthroplasty of left knee Z96.652 Assessments Encounter Date Diagnosis (ICD Code) Assessment Notes Treat ment Notes Treatment Clinical Notes 07/15/2025 Multiple sclerosis (ICD-10 - G35) She was treated today with 300 mg of that drug intravenously over one hour without difficulty. She was observed afterwards and had no reactions. 07/15/2025 Cerebral aneurysm (ICD-10 - I67.1) She has had no symptoms from this. 07/15/2025 Labyrinthitis (ICD-10 - H83.09) She has had very little vertigo lately and is doing quite well. She has medication to take if necessary. 07/15/2025 Torticollis (ICD-10 - M43.6) She remains under treatment with a coat operator insulator and a neurologist. 07/15/2025 History of arthroplasty of left knee (ICD-10 - Z96.652) The recent surgery is healing well. Plan Of Treatment Medication Medication Name Sig Start Date Stop Date Notes Gabapentin 800 MG 1 capsule Orally Thr ee times a day Nuvigil 150 MG 1 tablet Orally Once a day Provigil 200 MG 1 tablet in the morn ing Orally Twice a day Amitriptyline HCl 100 MG 1 tablet at bed time Orally Once a day ALPRAZolam 0.5 MG 1 tablet Orally Once a day Benadryl 25 MG 1 tablet as needed O rally prior to chemo Ampyra 10 MG 1 tablet Orally Twice a day Metoprolol Tartrate 25 MG 1 tablet Orally Twice a day Next Appt Details Follow Up: 4 Weeks, Reason: Tysabri infusion no tests Provider Name:Henri Cruzrne , 10/07/2025 09:00:00 AM, [address] [place] [address] [address], [place], [address], Provider Name:Henri Lund Roxi , 11/04/2025 09:30:00 AM, [address] [place] [address] [address], [place], [address], Procedure Notes * Category Sub-Category Detail Notes Chemotherapy Start and End Time: start, 9:00 am, end, 10:00 am Site: left arm Consent: verbal consent was o btained prior to procedure Medications given: Tysabri 300 mg Monitored by: EMILI Bro route IV Progress Notes * Paige TATUMneDOB:[birth year] (65 yo F)Acc No.[id number]:07/15/2025 PROGRESS NOTE Patient: Paige KUMARne Provider: Diane Diane MD :1960 A ge:65 Y S ex:Female Date:07/15/2025 Address:[address] [place] [id number] Pcp:Valeria Guerra Subjective: * Chief Complaints: * M ultiple sclerosis * HPI: C OVID-19 Screening: She returns for another dose of Tysabri monoclonal antibody therapy for chronic relapsing multiple sclerosis. She has been well this month. There were no contraindications for treatment. Questions H ave you had any new [...] t ubal ligation 2 sections septoplasty, Dr. Cooely * Hospitalization/Major Diagno stic Procedure: D enies [...] Arlyn for many years. She lives in [place]. 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. Her first granddaughter, Landry, was born to [...] H t: 61in, Wt: 146, BMI:27.58, BP: 128/75, HR: 81, Ht-cm: 154.94, Wt-k.22. * Examination: G eneral Examination: GENERAL APPEARANCE: p leasant, well nourished, well developed, in no acute distress, calm and relaxed: overweight: woman. HEAD: a traumatic, normocephalic, Torticollis to the left.? EYES: e ron, perrla, anicteric, conjugate. EARS: [...] n ot examined. MUSCULOSKELETAL: W eakness and muscle wasting both lower extremities, uses device. PERIPHERAL PULSES: n ormal. NEUROLOGIC: a lert and oriented, cranial nerves 2-12 grossly intact, deep tendon reflexes 2+ symmetrical, motor strength normal upper extremities, sensory exam intact, Weakness and spasticity lower extremities. PSYCH: a lert, oriented. Assessment: * Assessment: 1. M ultiple sclerosis - G35 (Primary) N otes :She was treated today with 300 mg of that drug intravenously over one hour without difficulty. She was observed afterwards and had no reactions. 2 . C erebral aneurysm - I67.1 N otes :She has had no symptoms from this. 3 . L abyrinthitis - H83.09 N otes :She has had very little vertigo lately and is doing quite well. She has medication to take if necessary. 4 . T orticollis - M43.6 N otes :She remains under treatment with a coat operator insulator and a neurologist. 5 . H istory of arthroplasty of left knee - Z96.652 N otes :The recent surgery is healing well. Plan: * Treatment: * Procedures: C hemotherapy: Start and End Time: s tart, 9:00 am, end, 10:00 am. Site: [facility]. Consent: v erbal consent was obtained prior to procedure.? Medications given: T ysabri 300 mg. Monitored by: EMILI Oshea. route I V. * Procedure Codes: 9 6413 CHEMO, IV INFUSION, 1 [id number] NATALIZUMAB INJECTION * Preventive Medicine: Counseling: C [...] * Follow Up: 4 Weeks (Reason: Tysabri infusion no tests) * Images: * Sign off status: Completed true * Provider: Diane Diane MD Date: 0 07/15/2025 Generated for Shelley dudley/Faxing/eTransmitting on: 1 11/09/2024 10:45 AM EST History and Physical [...] and relaxed: overweight: woman HEAD: atraumatic, normocep halic, Torticollis to the left EYES: eomi, perrla, anicte husam, conjugate EARS: [...] strength normal upper extremities, sensory exam intact, Weakness and spasticity lower extremities SKIN: no suspicious lesion s, anicteric PERIPHERAL PULSES: normal BREASTS: Not examined MUSCULOSKELETAL: Weakness and muscle wasting both lower extremities, uses device LYMPH NODES: no enlarged lymph no tyson,spleen normal RECTAL EXAM: not examined PSYCH: alert, oriented ORAL CAVITY: normal, unremarkable
--- OUTSIDE RECORDS SUMMARY | 2025-08-11 04:00 | XMS_ITS ---
Author Organization Henri Diane III, MD Address [address] [address] Care Team Providers Care Parcel Post Order Clerk Name Role Phone Valeria Guerra Primary Care Provider Henri Hong III [phone] Sami BOYD, [facility] Unavailable Dr. Henri Hong III Unavailable Allergies Allergen (clinical drug ingredient) Drug/Non Drug Allergy documented on EMR Reaction Allergy Type Onset Date Status amoxicillin Amoxicillin Rash Drug Allergy Act dilan REASON FOR VISIT multiple sclerosis Medications Medication SIG (Take, Route, Frequency, Duration) Notes Start Date End Date Status Benadryl 25 MG 1 tablet as needed [...] tablet Orally Twic e a day Active Gabapentin 800 MG 1 [...] Aggressive non-smoker Vital Signs Blood pressure systolic 134 mm Hg 08/11/20 25 Blood pressure diastolic 76 mm Hg 025 Heart Rate 84 /min 08/11/2025 Height 61in in 08/11/2025 Weight 148 lbs 08/11/2025 BMI 27.96 kg/m2 08/11/2025 Encounters Encounter Location Date Provider Diagnosis Henri Diane III, MD [address] [place] [address] [place] [address] 08/11/2025 Henri Diane Multiple sclerosis G 35 ; Overweight E66.3 ; Cerebral aneurysm I67.1 ; Subarachnoid hemorrhage due to ruptured aneurysm I60.8 ; History of arthroplasty of left knee Z96.652 and Torticollis M43.6 Assessments Encounter Date Diagnosis (ICD Code) Assessment Notes Treatment Notes Treatment Clinical Notes 08/11/2025 Multiple sclerosis (ICD-10 - G35) She was treated today with 300 mg of that drug intravenously over one hour without difficulty. She was observed afterwards and had no reactions. 08/11/2025 Overweight (ICD-10 - E66.3) Her body mass index is 28. She has gained 5 pounds.We discussed her weight loss strategy in her diet and nutrition. I recommended weight loss at a rate of one half of a pound per week through a diet restricted in fat calories and sodium. 08/11/2025 Cerebral aneurysm (ICD-10 - I67.1) She has had no symptoms from this. 08/11/2025 Subarachnoid hemorrhage due to ruptured aneurysm (ICD-10 - I60.8) She has had no further symptoms of headache or weakness suggestive of intracranial bleeding. 08/11/2025 History of arthroplasty of left knee (ICD-10 - Z96.652) The recent surgery is healing well. 08/11/2025 Torticollis (ICD-10 - M43.6) She remains under treatment with a habilitation training specialist and a neurologist.Torticol lis is improving Plan Of Treatment Medication Medication Name Sig Start Date Stop Date Notes Benadryl 25 MG 1 tablet as needed [...] Appt Details Follow Up: 4 Weeks, Reason: ov Provider Name:Henri Cruzrne , 09/09/2025 10:45:00 AM, [address] [place] [address] [address], [place], [address], Provider Name:Henri Lund Roxi , 10/07/2025 09:00:00 AM, [address] [place] [address] [address], [place], [address], Provider Name:Henri Lund Roxi , 11/04/2025 09:30:00 AM, [address] [place] [address] [address], [place], [address], Procedure Notes * Category Sub-Category Detail Notes Chemotherapy Start and End Time: start, 9:00 am, end, 10:00 am Site: right hand Consent: verbal consent was o btained prior to procedure Medications given: Tysabri 300 mg Monitored by: EMILI Bro route IV Progress Notes * Paige TATUMneDOB:[birth year] (65 yo F)Acc No.[id number]:08/11/2025 PROGRESS NOTE Patient: Maryse KUMAR Provider: Diane Diane MD :1960 A ge:65 Y S ex:Female Date:08/11/2025 Address:[address] [place] [address] [id number] Pcp:Valeria Guerra Subjective: * Chief Complaints: * M ultiple sclerosis * HPI: v : She returns to the office to receive another infusion of Tysabri monoclonal antibody therapy for chronic relapsing multiple sclerosis. She has been in good health this month. There was no contraindication to treatment. She was treated without incident. * ROS: G eneral/Constitutional: pain T orticollis neck. C hills d enies. F atigue a [...] ciatica d enies. W eakness d enies. S kin: Itching d enies. R jon [...] Arlyn for many years. She lives in [place]. 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 Her first granddaughter, Landry, [...] Objective: * Vitals: H t: 61in, Wt: 148, BMI:27.96, BP: 134/76, HR: 84, Ht-cm: 154.94, Wt-k.13. * Examination: G eneral Examination: GENERAL APPEARANCE: p leasant, well nourished, well developed, in no acute distress, calm and relaxed: overweight: woman. HEAD: a traumatic, normocephalic. EYES: e ron, perrla, anicteric, conjugate. EARS: n ormal. NOSE: s eptum intact. ORAL CAVITY: n ormal, unremarkable. NECK/THYROID: n o jugular venous distention, no carotid bruit, thyroid normal, Torticollis with head turned to the left much improved since last visit,. LYMPH NODES: n o enlarged lymph nodes,spleen normal. SKIN: n o suspicious lesions, anicteric. HEART: n o clicks, gallops, murmurs, or rubs, regular rhythm, S1, S2 normal, no s3, or vascular bruits. LUNGS: c lear to auscultation . BREASTS: N ot examined. ABDOMEN: b owel sounds normal, no ascites, no organomegaly, no mass: overweight. RECTAL EXAM: n ot examined. MUSCULOSKELETAL: e xtremities unremarkable, no clubbing, cyanosis or edema, Muscle wasting lower extremities with weakness. PERIPHERAL PULSES: n ormal. NEUROLOGIC: a lert and oriented, cranial nerves 2-12 grossly intact, deep tendon reflexes 2+ symmetrical, motor strength normal upper and lower extremities, sensory exam intact, Bilateral lower extremity weakness and spasticity, uses cane or walker. PSYCH: a lert, oriented. Assessment: * Assessment: 1. O verweight - E66.3 (Primary) N otes :Her body mass index is 28. She has gained 5 pounds.We discussed her weight loss strategy in her diet and nutrition. I recommended weight loss at a rate of one half of a pound per week through a diet restricted in fat calories and sodium. 2 . M ultiple sclerosis - G35 N otes :She was treated today with 300 mg of that drug intravenously over one hour without difficulty. She was observed afterwards and had no reactions. 3 . C erebral aneurysm - I67.1 N otes :She has had no symptoms from this. 4 . S ubarachnoid hemorrhage due to ruptured aneurysm - I60.8 N otes :She has had no further symptoms of headache or weakness suggestive of intracranial bleeding. 5 . H istory of arthroplasty of left knee - Z96.652 N otes :The recent surgery is healing well. 6 . T orticollis - M43.6 N otes :She remains under treatment with a habilitation training specialist and a neurologist.Torticollis is improving Plan: * Treatment: * Procedures: C hemotherapy: Start and End Time: s tart, 9:00 am, end, 10:00 am. Site: [facility]. Consent: rl angelal consent was obtained prior to procedure.? Medications given: T ysabri 300 mg. Monitored by: EMILI Oshea. route I V. * Procedure Codes: 9 6413 CHEMO, IV INFUSION, 1 [id number] NATALIZUMAB INJECTION * Preventive Medicine: Counseling: C [...] done * Follow Up: 4 Weeks (Reason: ov) * Images: * Sign off status: Completed true * Provider: Diane Diane MD Date: Generated for Shelley dudley/Bonilla/Tonosmclaudia on: 11/09/2024 10:44 AM EST History and Physical Notes * Examination Category Sub-Category Detail Notes General Examination GENERAL APPEARANCE: pleasant , well nourished, well developed, in no acute distress, calm and relaxed: overweight: woman HEAD: atraumatic, normocep halic EYES: eomi, perrla, anicte husam, conjugate EARS: normal NOSE: septum intact NECK/THYROID: no jugular venous di stention, no carotid bruit, thyroid normal, Torticollis with head turned to the left much improved since last visit, HEART: no clicks, gallops, murmurs, or rubs, regular rhythm, S1, S2 normal, no s3, or vascular bruits LUNGS: clear to auscultatio n ABDOMEN: bowel sounds normal, no ascites, no organomegaly, no mass: overweight NEUROLOGIC: alert and oriented, cranial nerves 2-12 grossly intact, deep tendon reflexes 2+ symmetrical, motor strength normal upper and lower extremities, sensory exam intact, Bilateral lower extremity weakness and spasticity, uses cane or walker SKIN: no suspicious lesion s, anicteric PERIPHERAL PULSES: normal BREASTS: Not examined MUSCULOSKELETAL: extremities unremark able, no clubbing, cyanosis or edema, Muscle wasting lower extremities with weakness LYMPH NODES: no enlarged lymph no tyson,spleen normal RECTAL EXAM: not examined PSYCH: alert, oriented ORAL CAVITY: normal, unremarkable
--- OUTSIDE RECORDS SUMMARY | 2025-08-15 07:30 | XMS_ITS ---
Author Organization [facility] Address [address] [place] [address] Care Team Providers Care Tool And Die Maker Level Five Name Role Phone Valeria Guerra Primary Care Provider Niya Tay Unavailable [phone] Encounters Encounter Location Date Provider Diagnosis [address] [address] 08/15/2025 Niya Hull Plan Of Treatment Next Appt Details Provider Name:Niya powell, 09/19/2025 09:30:00 AM, [address] [place] [address], [phone], Progress Notes * KAYLIRENY PaigeneDOB:[birth year] (65 yo F)Acc No.[id number]:08/15/2025 Progress Note Patient: Maryse KUMAR Provider: Lisa Hull DPM :1960 A ge:65 Y S ex:Female Date:08/15/2025 Address: [address] [phone] Pcp:Valeria Guerra Subjective: * Chief Complaints: * * Medical History: Objective: * Vitals: Assessment: Plan: * Treatment: * Images: * The named appointment provid er may or may not be the originator of this progress note, and it is not deemed complete until electronically signed by the appointment provider. Sign off status: Pending * Provider: Lisa Hull DPM Date: Generated for Shelley dudley/Bonilla/Evelyne on: 11/09/2024 10:43 AM EST
--- OUTSIDE RECORDS SUMMARY | 2025-09-09 05:45 | XMS_ITS ---
Author Organization Henri Diane III, MD Address [address] [place] [address] Care Team Providers Care Foot Doctor Name Role Phone Valeria Guerra Primary Care Provider Henri Hong III [phone] Sami BOYD, [facility] Unavailable Dr. Henri Hong III Unavailable [...] 1 tablet Orally Once a day Active Metoprolol Tartrate 25 MG [...] tablet Orally Twic e a day Active Social History Tobacco Use: Social History Observation Description Date Details (start date - stop date) Never Smoker NA - NA Sex Assigned At : Social History Observation Description Sex Assigned At Female Tobacco Use/Smoking Question Answer Notes Patient is a nonsmoker Additional Findings: Tobacco Non-User Aggressive non-smoker Encounters Encounter Location Date Provider Diagnosis Henri Diane III, MD [address] [place] [address] [place] [address] 09/09/2025 Henri Diane Multiple sclerosis G35 Assessments Encounter Date Diagnosis (ICD Code) Assessment Notes Treatment Notes Treatment Clinical Notes 09/09/2025 Multiple sclerosis (ICD-10 - G35) She was treated today with 300 mg of that drug intravenously over one hour without difficulty. She was observed afterwards and had no reactions. Plan Of Treatment Medication Medication Name Sig Start Date Stop Date Notes Gabapentin 800 MG 1 capsule Orally Thr ee times a day Nuvigil 150 MG 1 tablet Orally Once a day Metoprolol Tartrate 25 MG 1 [...] Orally Twice a day Next Appt Details Provider Name:Henri Diane , 09/09/2025 10:45:00 AM, [address] [place] [address] [address] [place], [address], Provider Name:Henri Diane , 10/07/2025 09:00:00 AM, [address] [place] [address] [address] [place], [address], Provider Name:Henri Diane , 11/04/2025 09:30:00 AM, [address] [place] [address] [address] [place], [address], Procedure Notes * Category Sub-Category Detail Notes Chemotherapy Start and End Time: - Site: - Consent: - Medications given: - Monitored by: - route - Progress Notes * Lorenzo HADDADOB:[birth year] (65 yo F)Acc No.[id number]:09/09/2025 PROGRESS NOTE Patient: Catherine JOSE RAMONRENETTADEBORAHGi Maryse Provider: Diane Diane MD :1960 A ge:65 Y S ex:Female Date:09/09/2025 [facility] [id number] Pcp:Valeria Guerra Subjective: * Chief Complaints: * 1 . Multiple sclerosis. * HPI: C OVID-19 Screening: Questions H ave you had any new [...] of breath d enies. G astrointestinal: Constipation d enies. D ecreased appetite d enies.?Diarrhea d enies. H eartburn d enies. N ausea d enies. R ectal bleeding?denies. V omiting d enies. H ematology: bruising [...] Depressed mood d enies. * Medical History: S ubarachnoid hemorrhage 2012, [id number], Tubal Ligation, chronic relapsing Multiple Sclerosis, Cerebral aneurysm, Chronic right maxillary sinusitis, Torticollis. * Surgical History: t ubal ligation , 2 sections , septoplasty, Dr. Cooley . * Hospitalization/Major Diagno stic Procedure: D enies Past Hospitalization. * Family History: F ather: , Parkinsons, PSP. M other: alive, Osteoarthritis. C hildren: alive.?Son(s): alive. D adanhter(s): alive. 1 brother(s) , 1 sister(s) - [...] T obacco Use: T obacco Use/Smoking P ryan is a n onsmoker A dditional Findings: Tobacco Non-User A ggressive non-smoker S he has been to [place] for many years. She lives in [place]. 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 Her first granddaughter, Landry, was born to her daughter Paola in July 2021. * Medications: T aking ALPRAZolam 0.5 MG Tablet 1 tablet Orally Once a day , Taking Benadryl 25 MG Tablet 1 tablet as needed Orally prior to chemo , Taking Ampyra 10 MG Tablet Extended Release 12 Hour 1 tablet Orally Twice a day , Taking Metoprolol Tartrate 25 MG Tablet 1 tablet Orally Twice a day , Taking Gabapentin 800 MG Tablet 1 capsule Orally Three times a day , Taking Nuvigil 150 MG Tablet 1 tablet Orally Once a day , Taking Provigil 200 MG Tablet 1 tablet in the morning Orally Twice a day , Taking Amitriptyline HCl 100 MG Tablet 1 tablet at bedtime Orally Once a day , Medication List reviewed and reconciled with the patient * Allergies: A moxicillin: Rash - Allergy. Objective: * Vitals: * Examination: G eneral Examination: GENERAL APPEARANCE: p leasant, well nourished, well developed, in no acute distress, calm and relaxed. HEAD: a traumatic, normocephalic. EYES: e ron, [...] LUNGS: c lear to auscultation . BREASTS: no masses palpable bilaterally. ABDOMEN: b owel sounds normal, no ascites, no organomegaly, no mass. RECTAL EXAM: n ot examined. MUSCULOSKELETAL: e xtremities unremarkable, no clubbing, cyanosis or edema. PERIPHERAL PULSES: n ormal. NEUROLOGIC: a lert and oriented, cranial nerves 2-12 grossly intact, deep tendon reflexes 2+ symmetrical, motor strength normal upper and lower extremities, sensory exam intact. PSYCH: a lert, oriented. Assessment: * Assessment: 1. M ultiple sclerosis - G35 N otes :She was treated today with 300 mg of that drug intravenously over one hour without difficulty. She was observed afterwards and had no reactions. Plan: * Treatment: * Procedures: C hemotherapy: Start and End Time: - . Site: - . Consent: - . Medications given: - . Monitored by: - . route - . * Procedure Codes: 9 6413 CHEMO, IV INFUSION, 1 HR, [id number] NATALIZUMAB INJECTION * Images: * The named appointment provid er may or may not be the originator of this progress note, and it is not deemed complete until electronically signed by the appointment provider. Sign off status: Pending * Provider: Diane Diane MD Date: 11/09/2024 Generated for Shelley dudley/Bonilla/Gustavoitting on: 11/09/2024 10:43 AM EST History and Physical Notes * HPI (History of Present Illness) Category Sub-Category Detail Notes COVID-19 Screening Questions Have you had any new onset fever, chills, cough, congestion, sore throat, shortness of breath, muscle aches?: No Examination Category Sub-Category Detail Notes General Examination GENERAL APPEARANCE: pleasant , well nourished, well developed, in no acute distress, calm and relaxed HEAD: atraumatic, normocep halic EYES: eomi, perrla, [...] normal upper and lower extremities, sensory exam intact SKIN: no suspicious lesion s, anicteric PERIPHERAL PULSES: normal BREASTS: no masses palpable b ilaterally MUSCULOSKELETAL: extremities unremark able, no clubbing, cyanosis or edema LYMPH NODES: no enlarged lymph no tyson,spleen normal RECTAL EXAM: not examined PSYCH: alert, oriented ORAL CAVITY: normal, unremarkable
--- NOTE | 2025-09-09 09:34 | A.OFFVIS_ITS ---
Intake Visit Reasons: 6m MS Allergies amoxicillin (AMOXICILLIN) Allergy (Intermediate, Unverified 07/23/20 17:03) RASH codeine Allergy (Unknown, Verified 09/04/25 08:34) Unknown Medication List - Last Reconciled 09/09/25 by Ashly Gallardo MD alprazolam 0.5 mg PO TID PRN 90 days alprazolam 0.5 mg PO TID amitriptyline 50 mg PO BEDTIME armodafinil 150 mg PO QAM 30 days armodafinil (Nuvigil) 150 mg PO QAM dalfampridine ER mg PO gabapentin 800 mg PO TID meclizine 25 mg PO DAILY PRN metoprolol tartrate 25 mg PO DAILY natalizumab (Tysabri) mg IV tolterodine mg PO HPI Comments Details: 65 yr old woman with h/o RR-MS since age 21. Slight improvement in neck weakness, currently 7 wks s/p Xeomin inj. with difficulty holding head up. Using a soft cervical collar. Walking with left head tilt for 3 months. Xrays hav eshown muscle spasm and diffuse degenrative disc disease. Had left TKR in Nov 2023 and has only 90 degree flexion and does not have full extension, and will need manipulation. Retired in April 2023. MRI 04/28 shows stable lesions and some atrophy. No more binocular diplopia. Stopped PT. Hurt knee again in PT. Was in a long leg brace. She has been stable MS with no new symptoms. Had knuckle replacement on left hand and is in PT. Lately she is having more urinary urgency and incontinence. Does not use a cane. Her symptoms from the thighs down are unchanged. She has paresthesia of hurting, burning, numbness and tingling from mid thigh down. Stable strength . Since March 2013 she has had bilateral LE mid t high down numbness. NCV / EMG of LE was normal. It used to come on about 5-8 hrs after getting up in the morning and last the rest of the day, but since 2013 it has been constant. There is some burning pain. There is no increasing weakness. So far the workup has been negative. Occasional falls from loss of balance. ZAMUDIO are gone. S/P SAH with full recovery and negative w/u for source of bleeding. Fatigue has improved. Vision is fine now. [facility] Medical History (Updated 09/09/25 @ 10:04 by Ashly Gallardo MD) Subarachnoid hemorrhage Spasmodic torticollis Multiple sclerosis Review of Systems Const Details: General/Constitutional:? Change in appetitedenies.? Fatiguedenies.? Feverdenies.? Weight gaindenies.? Weight lossdenies. ???Sleep:? Difficulty getting to sleepdenies.? Difficulty maintaining sleepdenies?.? Daytime sleepinessdenies. ???Respiratory:? Shortness of breathdenies.? Chest paindenies. ???Cardiovascular:? Chest pain at restdenies.? Chest pain with exertiondenies.? Dizzinessdenies.? F luid accumulation in the legsdenies.? Irregular heartbeatdenies.? Palpitations denies. ???Gastrointestinal:? Constipationdenies.? Diarrheadenies.? Difficulty swallowingdenies.? Heartburn denies.? Nauseadenies. ???Genitourinary:? Frequent urinationdenies.? Urgencydenies.? Incontinencedenies. ???Musculoskeletal:? Neck paindenies.? Back paindenies.? Joint stiffnessdenies.? Sciaticadenies. ???Neurologic:? Difficulty swallowingdenies.? Balance difficultydenies.? Coordinationnormal.? Difficulty speakingdenies.? Dizzinessdenies.? Faintingdenies.? Gait abnormality denies.? Headachethat is new.? Loss of strengthdenies.? Loss of use of extremity denies.? Low back paindenies.? Memory lossdenies.? Seizuresdenies.? Ticsdenies.? Tingling/Numbnessbilateral lower extremities.? Transient loss of visiondenies.? Tremordenies. ???Psychiatric:? Anxietydenies.? Auditory/visual hallucinationsdenies.? Delusionsdenies.? Depressed mooddenies.? Stressorsdenies.? Suicidal thoughtsdenies. Physical Exam Neuro Other: Mini Mental Status Exam: Level of Consciousness:??Alert.?Orientation:??Knows correct year, month, date, day and season,?Knows correct city, county and state. Knows correct location and floor.?Registration:??Able to register 3 objects.?Attention:??Serial 7's performed accurately.?Recall:??Able to recall 3 out of 3 objects.?Language:??Normal spontaneous speech, fluency, repetition,naming, comprehension, reading and writing.?Total Score:??30/30.? General Examination: GENERAL APPEARANCE:??normal,?in no acute distress.?HEART:??S1, S2 normal,?no murmurs.?LUNGS:??clear anteriorly and posteriorly.?MUSCULOSKELETAL:??normal.?EXTREMITIES:??no edema.?PSYCH:??alert, oriented,?cognitive function intact,?cooperative with exam.? Neurological: Abnormal neurological findings:??Unable to bear weight on right hip from pain. Mild weakness of the proximal muscles in right lower extremity and slight slowness of rapid alternating movements on the right side. Right-sided hyperreflexia. Weakness of dorsiflexion of the right ankle. Equivocal extensor plantar response in the right. She walks with a slight limp..?Mental Status:??alert and oriented X 3,?Normal attention, orientation, memory and affect.?Cranial Nerves:??Pupils are equal, round and reactive to light. Fundoscopy shows normal disc bilaterally. External occular muscles are intact. Visual perez are full, no ptosis. Face is symmetrical, no facial weakness or droop. Facial sensations are normal. Tongue protrudes in midline. Palate elevates symmetrically. Shoulder shrugging is normal..?Motor Examination:??Normal muscle tone, bulk and strength except as stated above in the abnormal findings,?No atrophy or fasciculations,?No drift of the extended upper extremities,?Deep tendon reflexes are 2+?,?Plantars are flexor?.?Straight Leg Raising:??90 degrees.?Sensory Exam:??Normal light touch, temperature, pinprick, vibration and joint-position sensations?,?Rhomberg sign is absent.?Coordination:??no ataxia,?no titubation,?dfzyvv-br-kntu, fnsy-mffu-qbql test and rapid alternating movements were normal.?Gait Exam:??Walks with a slight limp on the right side.?Cerebellar Signs:??Fkiffm-cb-xitj and qofz-hi-mdyu is normal,?no dysdiadochokinesia?.?Extrapyramidal System:??No tremor, rigidity with normal facial expressions,?No bradykinesia, no bradyphrenia. Normal arm swing and posture. No propulsion or retropulsion.?Speech:??Normal,?no dysphasia or dysarthria..? Assessment & Plan Assessment & Plan (1) Multiple sclerosis: Comment: Stable Code(s): G35 - Multiple sclerosis Category: Medical (2) Spasmodic torticollis: Comment: Did not do well with Botox . Yuan snot want another inj. Code(s): G24.3 - Spasmodic torticollis Category: Medical (3) Subarachnoid hemorrhage: Comment: Jul 2012 . Idiopathic with no cause found inspite of repeated angiograms x 2 Code(s): I60.9 - Nontraumatic subarachnoid hemorrhage, unspecified Category: Medical Plan Continue current meds. She is considering moving her care to [facility] for continuity of care. Records will be provided Coding Level of Care Code Est Pt Level 4 (07624) Diagnoses Multiple sclerosis G35 Spasmodic torticollis G24.3 Subarachnoid hemorrhage I60.9
--- OUTSIDE RECORDS SUMMARY | 2025-09-09 10:43 | XMS_ITS | Patient Health Record ---
[facility] Address [address] [place] [address] Care Team Providers Care Garde Manager Name Role Phone Valeria Guerra Primary Care Provider Niya Tay Unavailable [phone] Allergies Allergen (clinical drug ingredient) Drug/Non Drug Allergy documented on EMR Reaction Allergy Type Onset Date Status amoxicillin Amoxicillin Unknown Drug Allergy Act dilan Reason For Referral No Information Medications Medication SIG (Take, Route, Frequency, Duration) Notes Start Date End Date Status Metoprolol Succinate 25 MG 1 capsule Ora lly Once a day Active Nuvigil 150 MG 1 tablet Orally Once a day Active Dalfampridine Active Gabapentin 800 MG 1 tablet Orally Once a day Active Tysabri 300 MG/15ML Intravenous; Duratio n: 28 Days Active Amitriptyline HCl 25 MG 1 tablet at bedt pro Orally Once a day Active Meclizine HCl 25 MG 1 tablet as needed O rally every 12 hrs Active ALPRAZolam 0.5 MG 1 tablet Orally Twic e a day Active Social History Tobacco use other than smoking: Question Answer Notes Are you an other tobacco user? No Tobacco Control (Standard) Question Answer Notes Additional Findings: Tobacco non-user Current no nsmoker AUDIT-C (Standard) Question Answer Notes Did you have a drink contain ing alcohol in the past year? Yes How often did you have a dri nk containing alcohol in the past year? Never (0 point) How many drinks did you have on a typical day when you were drinking in the past year? 1 or 2 drinks (0 point) How often did you have six o r more drinks on one occasion in the past year? Never (0 point) Points 0 Interpretation Negative Vital Signs Blood pressure diastolic 82 mm Hg 04/04/2025 Height 5 ft 2 in in 04/04/2025 Blood pressure systolic 120 mm Hg 04/04/2025 Weight 140 lbs 04/04/2025 BMI 25.6 kg/m2 04/04/2025 Encounters Encounter Location Date Provider Diagnosis [facility] [address] [place] [address] 04/04/2025 Niya Hull Pain in right toe(s) M79.674 ; Onychomycosis B35.1 and Pain in left toe(s) M79.[address] [address] 03/27/2025 Niya Hull [address] [address] 04/04/2025 Niya Hull [address] [address] 07/14/2025 Niya Hull Assessments Encounter Date Diagnosis (ICD Code) Assessment Notes Treatment Notes Treatment Clinical Notes Section Notes 04/04/2025 Pain in right toe(s) (ICD-10 - M79.674) 04/04/2025 Onychomycosis (ICD-10 - B35.1) 04/04/2025 Pain in left toe(s) (ICD-10 - M79.675) Plan Of Treatment Next Appt Details Provider Name:Niya powell, 09/19/2025 09:30:00 AM, [address] [place], [address], Insurance Providers Payer Name Payer Address Payer Phone Subscriber Number Group Number Insured Name Patient Relationship to Insured Coverage Start Date Coverage End Date [facility] (Count Includes [facility]) [address] [place] [address] [phone] [id number] Maryse George Self - patient is the insured Medical (General) History Medical History History ICD Code Multiple sclerosis Chicken pox Broken bones Surgical History Surgery Date(Month/Year) knee replacement wrist surgery
--- OUTSIDE RECORDS SUMMARY | 2025-09-09 10:44 | XMS_ITS | Clinical Summary ---
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:HAND SURGERY;COMMENT:RING FINGER KNUCKLE REPLACEMENT COLONOSCOPY PROCEDURE:COLONOSCOPY Medical History Medical History Date Comments GERD (gastroesophageal reflux disease) DX:GERD (gastroesophageal reflux disease) Aneurysm ([facility] V24) DX:Aneury sm ([facility]) Hypertension DX:Hypertension Urinary frequency DX:Urinary dave quency Subdural hematoma ([facility] V 24, [facility] V28) 2012 DX:Subdural hematoma ([facility]);COMMENT:SPONTANEOUS, RESOLVED Peripheral neuropathy DX:Periphe ral neuropathy Family history of deep vein thrombosis DX:Family history of deep vein thrombosis;COMMENT:POSSIBLE DVT MOTHER, UNKNOWN [place] Urinary incontinence DX:Urinary incontinence Depression DX:Depression Anxiety DX:Anxiety Family History Medical History Relation Name Comments Heart attack Father X2 Parkinsonism Father Clotting disorder Mother Heart disease Mother Relation Name Status Comments Father (Age 83) PARKINSON' S DISEASE Mother Alive Social History Tobacco Use Types Packs/Day Years Used Date Smoking Tobacco: Never Smokeless Tobacco: Never Comments Unknown Sex and Gender Information Value Date Recorded Sex Assigned at Not on file Legal Sex Female 8:30 PM EST Gender Identity Not on file Sexual Orientation Not on file Obstetrics History Last Filed Vital Signs Vital Sign Reading Time Taken Comments Blood Pressure - - Pulse - - Temperature - - Respiratory Rate - - Oxygen Saturation - - Inhaled Oxygen Concentration - - Weight 64.9 kg (143 lb) 10/20/2023 2:16 PM EST Height 154.9 cm (5' 1 ) 10/20/2023 2:16 PM EST Body Mass Index 27.02 10/20/2023 2:16 PM EST Plan of Treatment Health Maintenance Due Date Last Done Comments Breast Cancer Screening 1961 Colorectal Cancer Screening: Colonoscopy 1961 Pneumococcal Vaccine: 50+ Years (1 of 1 - PCV) 2011 Zoster Vaccines (1 of 2) 2011 Cholesterol Screening (Lipid Panel) 10/08/2022 HIV Screening 10/08/2022 Hepatitis C Screening 10/08/2022 Osteoporosis Screening (Bone Density Screening) 10/08/2022 Social Influencers of Health Screening 10/08/2022 Hypertension/CHF/CAD Annual BMP Blood Test 09/09/2024 Depression Screening 11/06/2024 COVID-19 Vaccine ( season) 2025 10/22/2022, 03/19/2022, 10/19/2021, Additional history exists Influenza Vaccine (#1) 2025 Cervical Cancer Screening: Pap Smear 04/18/2028 04/18/2025 DTaP,Tdap,and Td Vaccines (2 - Td or Tdap) 01/18/2030 01/19/2020 RSV Immunization Adult Patients (1 - 1-dose 75+ series) 2036 HIB Vaccines Aged Out No longer eligi ble based on patient's age to complete this topic HPV Vaccines Aged Out No longer eligi ble based on patient's age to complete this topic Hepatitis A Vaccines Aged Out No long er eligible based on patient's age to complete this topic Hepatitis B Vaccines Aged Out No long er eligible based on patient's age to complete this topic IPV Vaccines Aged Out No longer eligi ble based on patient's age to complete this topic MMR Vaccines Aged Out No longer eligi ble based on patient's age to complete this topic Meningococcal ACWY Vaccine Aged Out N o longer eligible based on patient's age to complete this topic Meningococcal B Vaccine Aged Out No l onger eligible based on patient's age to complete this topic RSV Immunization Patients Under 20 months Aged Out No longer eligible based on patient's age to complete this topic Varicella Vaccines Aged Out No longer eligible based on patient's age to complete this topic Goals Goal Patient Goal Type Associated Problems Recent Progress Patient-Stated? Author <enter goal here> General On track(10/29/20 11:12 AM EST) Yes Luda Gray OT Note: I want more strength in my left hand Procedures Procedure Name Priority Date/Time Associated Diagnosis Comments PAP SMEAR Routine 04/18/2025 12:00 PM EDT Encounter for gynecological examination (general) (routine) without abnormal findings from Last 3 Months or Most Recently Relevant to Health Maintenance Results * Pap smear (04/18/2025 12:00 PM EDT) Interpretation Negative for intraepithelial lesion or malignancy 04/21/2025 4:31 PM EDT [facility] General Categorization Negative 04/21/2025 4:31 PM EDT [facility] Other Findings Atrophy 04/21/2025 4:[address] [facility] Specimen Adequacy Satisfactory for evaluation 04/21/2025 4:[address] [facility] Pap Methodology Liquid Based Pap Test 04/21/2025 4:[address] [facility] Disclaimer The Pap test is a screening test which carries an inherent false negative rate. These test results should be correlated with the patient's clinical findings and history. This Pap test was processed using an automated screening system. Technical cytopathology services provided by [facility], at [address] [place] [address], [place] [address] (CLIA # [id number]/Lita Day MD, Family Helper.) 04/21/2025 4:[address] [facility] Console Pap Interpretation Reported 04/21/2025 4:[address] [facility] Brushing/Spatula Cervix uteri structure / Unknown 04/18/2025 12:00 PM EDT 04/21/2025 6:57 AM EDT us Faraz Smith MD LAB CYTOLOGY ORDERABLES Final Result [facility] [address] [place] [address], from Last 3 Months or Most Recently Relevant to Health Maintenance Insurance REPLACED BY [facility] Care Teams Storage Specialist Relationship Specialty Start Date End Date Valeria Guerra MD [address] [place] [address] PCP - General Internal Medicine 09/19/24
--- OUTSIDE RECORDS SUMMARY | 2025-09-09 10:44 | XMS_ITS | Clinical Summary ---
Author Organization [facility] Address [address] [place] [address] Care Team Providers Care Contact Lens Fitter Name Role Phone Valeria Guerra MD Primary Care Provider [phone] Allergies Active Allergy Reactions Criticality Noted Date Comments Amoxicillin Hives Low 06/17/2021 Medications Medication Sig Dispensed Refills Start Date End Date Status dalfampridine ER (AMPYRA) 10 MG 12 hr tablet 1 tablet (10 mg total) every 12 (twelve) hours. 0 06/09/2021 Active gabapentin (NEURONTIN) 800 MG tablet Take 1 tablet (800 mg total) by mouth 3 (three) times a day. 0 03/30/2021 Active metoprolol tartrate (LOPRESSOR) 25 MG tablet every evening. 0 06/14/2021 Active Tysabri 300 MG/15ML injection Inject into the vein every 30 (thirty) days. Q 4 WEEKS 0 05/31/2021 Active ALPRAZolam (XANAX) 0.5 MG tablet Take 1 tablet (0.5 mg total) by mouth 3 (three) times a day as needed. 0 Active Armodafinil (Nuvigil) 150 MG tablet Take 1 tablet (150 mg total) by mouth daily. 0 Active amitriptyline (ELAVIL) tablet 25 mg Take 2 tablets (50 mg total) by mouth every night at bedtime. 0 09/19/2023 Active omeprazole (PriLOSEC) 20 MG capsule every evening. 0 08/25/2023 Active tolterodine (DETROL) 1 MG tablet Take 1 tablet (1 mg total) by mouth 2 (two) times a day. 1 TAB QD, 2 TAB QPM 0 10/17/2023 Active acetaminophen (TYLENOL) 325 MG tablet Take 1 tablet (325 mg total) by mouth every 6 (six) hours as needed for pain. 0 Active Family History Medical History Relation Name Comments Heart attack Father X2 Parkinsonism Father Clotting disorder Mother Heart disease Mother Relation Name Status Comments Father (Age 83) PARKINSON' S DISEASE Mother Alive Social History Tobacco Use Types Packs/Day Years Used Date Smoking Tobacco: Never Smokeless Tobacco: Never Sex and Gender Information Value Date Recorded Sex Assigned at Female 10/20/2023 2:17 PM EST Gender Identity Female 10/20/2023 2:17 PM EST Sexual Orientation Not on file Job Start Date Occupation Industry Not on file Not on file Not on file Last Filed Vital Signs Vital Sign Reading [...] Health Maintenance Due Date Last Done Comments Hepatitis C Screening 1961 COVID-19 Vaccine (#1) 1961 Depression Screening 1973 BMI Counseling 1979 Preventative Health Evaluation 1979 DTap / Tdap / Td (1 - Tdap) 1980 Cervical Cancer Screening (P ap Smear) 1982 Colon Cancer Screening (Colonoscopy) 2006 Breast Cancer Screening (Mammogram) 2011 Shingrix-Zoster Vaccine (1 of 2) 2011 Influenza Vaccine (#1) 2025 Pneumococcal Vaccine (1 of 1 - PCV) 2026 RSV Adult > 60+ Yrs or Pregn ant (1 - 1-dose 75+ series) 2036 Hepatitis B Vaccines Aged Out No long er eligible based on patient's age to complete this topic Pneumococcal Vaccine Aged Out No long er eligible based on patient's age to complete this topic RSV Ped < 20 months Aged Out No longe r eligible based on patient's age to complete this topic Care Teams Contact Lens Fitter Relationship Specialty Start Date End Date Valeria Guerra MD [address] [place] [address] PCP - General Internal Medicine 06/03/21
--- OUTSIDE RECORDS SUMMARY | 2025-09-09 10:44 | XMS_ITS | Encounter Summary ---
Author Organization [facility] Address [address] [place] [address] Care Team Providers Care Plant Control Aide Name Role Phone Valeria Gurera MD Primary Care Provider [phone] Encounter Details Date Type Department Care Team (Latest Contact Info) Description 04/21/2025 Lab Requisition [facility] - Main Lab [address] [place] [id number] Faraz Smith MD [address] [phone] Encounter for gynecological examination (general) (routine) without abnormal findings Social History Tobacco Use Types Packs/Day Years [...] Author <enter goal here> General On track(10/29/20 24 11:12 AM EST) Yes Luda Gray, OT Note: I want more strength in my left hand documented as of this encounter Procedures Procedure Name Priority Date/Time Associated Diagnosis Comments PAP SMEAR Routine 04/18/2025 12:00 PM EDT Encounter for gynecological examination (general) (routine) without abnormal findings documented in this encounter Results * Pap smear (04/18/2025 12:00 PM EDT) Interpretation Negative for intraepithelial lesion or malignancy 04/21/2025 4:31 PM EDT [facility] General Categorization Negative 04/21/2025 4:31 PM EDT [facility] Other Findings Atrophy 04/21/2025 4:31 PM EDT [facility] Specimen Adequacy Satisfactory for evaluation 04/21/2025 4:31 PM EDT [facility] Pap Methodology Liquid Based Pap Test 04/21/2025 4:31 PM T [facility] Disclaimer The Pap test is a screening test which carries an inherent false negative rate. These test results should be correlated with the patient's clinical findings and history. This Pap test was processed using an automated screening system. Technical cytopathology services provided by [facility], at [address] [place] [address] (CLIA # [id number]/Lita Day MD, Fire Tower Keeper.) 04/21/2025 4:31 PM T [facility] Console Pap Interpretation Reported 04/21/2025 4:31 PM [facility] Brushing/Spatula Cervix uteri structure / Unknown 04/18/2025 12:00 PM EDT 04/21/2025 6:57 AM EDT us Faraz Smith MD LAB CYTOLOGY ORDERABLES Final Result [facility] [address] [place] [address], documented in this encounter Visit Diagnoses Diagnosis Encounter for gynecological examination (general) (routine) without abnormal findings documented in this encounter Care Teams Plant Control Aide Relationship Specialty Start Date End Date Valeria Guerra MD [address] [address] PCP - General Internal Medicine 09/19/24 documented as of this encounter
--- OUTSIDE RECORDS SUMMARY | 2025-09-09 10:45 | XMS_ITS ---
Author Name [facility] Organization Unknown History of Medication Use Medication Directions Dispensed Refills Start Date End Date Stat Kenalog 40 mg/mL suspension for injection Take 1 mL by injection route. 03/08/2023 09/12/2023 completed lidocaine (PF) 10 mg/mL (1 %) injection solution Take 1 mL by injection route. 03/08/2023 09/12/2023 completed oxybutynin chloride ER 15 mg tablet,extended release 24 hr TAKE 1 TABLET BY MOUTH EVERY DAY FOR 90 DAYS 12/09/2023 active oxycodone 5 mg tablet 11/18/2023 completed anfix At-Home COVID-19 Test kit USE DIRECTED 09/12/2023 co mpleted tramadol 50 mg tablet TAKE 1 TABLET BY MOUTH EVERY 4 TO 6 HOURS NEEDED 09/12/2023 completed alprazolam 0.5 mg tablet TAKE 1 TABLET BY MOUTH THREE TIMES A DAY NEEDED FOR 90 DAYS active amitriptyline 25 mg tablet TAKE 2 TABLETS AT BEDTIME active armodafinil 150 mg tablet 1 TABLET BY MOUTH ONCE A DAY FOR 30 DAYS active cefadroxil 500 mg capsule active cefpodoxime 200 mg tablet TAKE 1 TABLET BY MOUTH TWICE A DAY active dalfampridine ER 10 mg tablet,extended release,12 hr active doxycycline hyclate 100 mg capsule TAKE 1 CAPSULE BY MOUTH TWICE A DAY active gabapentin 800 mg tablet TAKE 1 TABLET BY MOUTH THREE TIMES A DAY active meloxicam 15 mg tablet active methocarbamol 750 mg tablet active metoprolol tartrate 25 mg tablet TAKE 1 TABLET BY MOUTH EVERY DAY active mirabegron ER 50 mg tablet,extended release 24 hr TAKE 1 TABLET BY MOUTH EVERY DAY FOR 30 DAYS active omeprazole 20 mg capsule,delayed release TAKE 1 CAPSULE BY MOUTH EVERY DAY BEFORE A MEAL active ondansetron 8 mg disintegrating tablet active tolterodine 1 mg tablet TAKE 1 TABLET BY MOUTH TWICE A DAY FOR 30 DAYS active trospium 20 mg tablet TAKE 1 TABLET BY MOUTH EVERY DAY AT BEDTIME ON EMPTY STOMACH active Tysabri 300 mg/15 mL intravenous solution acti ve Xeomin 200 unit intramuscular solution active Allergies Allergen Reaction Severity Comment Documented Date Source Statu s AMOXICILLIN E[facility] Problems Problem Status Onset Date Problem Type Date of Resoluti on Source Instability of joint of left knee active 2023-09-12 ProblemAct [facility] Osteoarthritis of left knee joint active 2023-03-08 ProblemAct [facility] Surgical follow-up active 2024-11-15 ProblemAct [facility] Arthritis of knee active 2023-10-20 ProblemAct [facility] Pain of left knee joint active 2023-09-12 ProblemAct [facility] Encounters Encounter Type Encounter Reason Primary Diagnosis Location Date Ambulatory [facility] 04/21/2025 Ambulatory [facility] 04/18/2025 Ambulatory [facility] 04/16/2025 Ambulatory [facility] 11/18/2024 Ambulatory [facility] 11/14/2024 Ambulatory [facility] 11/14/2024 Ambulatory [facility] 07/03/2024 Ambulatory [facility] 03/18/2024 Ambulatory [facility] 03/14/2024 Ambulatory [facility] 02/16/2024 Ambulatory [facility] 02/14/2024 Ambulatory [facility] 12/09/2023 Ambulatory [facility] 11/22/2023 Ambulatory [facility] 11/22/2023 Ambulatory [facility] [place] Ambulatory [facility] 10/20/2023 Ambulatory [facility] 10/20/2023 Ambulatory [facility] 10/14/2023 Ambulatory [facility] 10/03/2023 Ambulatory [facility] 09/12/2023 Ambulatory [facility] 09/11/2023 Ambulatory [facility] 09/11/2023 Ambulatory [facility] 09/06/2023 Ambulatory [facility] 04/06/2023 Ambulatory [facility] 04/06/2023 Ambulatory [facility] 04/04/2023 Ambulatory [facility] 03/08/2023 Ambulatory [facility] 03/08/2023 Ambulatory [facility] 03/03/2023 Ambulatory [facility] 01/11/2023 Care Team Organization Name Specialty Phone Email Start Date End Da te [facility] [place] [facility] 3 05/20/2025 [facility] [place] [facility] 10/20/2023 10/20/2023
--- OUTSIDE RECORDS SUMMARY | 2025-09-09 10:45 | XMS_ITS | Patient Health Record ---
Author Organization [address] [address] Address [address] [place] [address] Reason For Referral No Information Plan Of Treatment No Information Insurance Providers Payer Name Payer Address Payer Phone Subscriber Number Group Number Insured Name Patient Relationship to Insured Coverage Start Date Coverage End Date [employer] (CHRISTINE ELIAS) [address] [place] [address] [id number] Maryse George Self - patient is the insured
--- OUTSIDE RECORDS SUMMARY | 2025-09-09 10:45 | XMS_ITS | Patient Health Record ---
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 Henri Hong III Unavailable Allergies Allergen (clinical drug ingredient) Drug/Non Drug Allergy documented on EMR Reaction Allergy Type Onset Date Status amoxicillin Amoxicillin Rash Drug Allergy Act dilan Reason For Referral No Information Medications Medication SIG (Take, Route, Frequency, Duration) Notes Start Date End Date Status ALPRAZolam 0.5 MG 1 tablet Orally Once a day Active Benadryl 25 MG 1 tablet as needed O rally prior to chemo Active Gabapentin 800 MG 1 capsule Orally Thr ee times a day Active Nuvigil 150 MG 1 tablet Orally Once a day Active Ampyra 10 MG 1 tablet Orally Twic e a day Active Metoprolol Tartrate 25 MG 1 tablet Orall y Twice a day Active Amitriptyline HCl 100 MG 1 tablet at bed time Orally Once a day Active Provigil 200 MG 1 tablet in the morn ing Orally Twice a day Active Social History Tobacco Use: Social History Observation Description Date Details (start date - stop date) Never Smoker NA - NA Sex Assigned At : Social History Observation Description Sex Assigned At Female Tobacco Use/Smoking Question Answer Notes Patient is a nonsmoker Additional Findings: Tobacco Non-User Aggressive non-smoker Alcohol Screen Question Answer Notes Did you have a drink containing alcohol in the p ast year? No Points 0 Interpretation Negative Problems Problem Type SNOMED Code ICD Code Onset Dates Problem Status W/U Status Risk Notes Problem 452175691 Overweight (E66.3) Active confirmed Her body mass index is 28. She has gained 5 pounds.We discussed her weight loss strategy in her diet and nutrition. I recommended weight loss at a rate of one half of a pound per week through a diet restricted in fat calories and sodium. Problem 60277651 Multiple sclerosis (G35) Active confirmed She was treated today with 300 mg of that drug intravenously over one hour without difficulty. She was observed afterwards and had no reactions. Problem 60055007 Torticollis (M43.6) Active confirmed She remains under treatment with a marketing research analyst and a neurologist.To rticollis is improving Problem 981950579 Cerebral aneurysm (I67.1) Active confirmed She has had no symptoms from this. 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 Problem 345607044257096 Labyrinthitis (H83.09) Active confirmed She has had very little vertigo lately and is doing quite well. She has medication to take if necessary. Problem [id number] History of arthroplasty of left knee (Z96.652) Active confirmed The recent surgery is healing well. Vital Signs Heart Rate 84 /min 08/11/2025 Blood pressure diastolic 76 mm Hg 08/11/2025 Height 61in in 08/11/2025 Blood pressure systolic 134 mm Hg 08/11/2025 Weight 148 lbs 08/11/2025 BMI 27.96 kg/m2 08/11/2025 Encounters Encounter Location Date Provider Diagnosis Henri Diane III, MD [address] [place] [address] [place] [id number] 09/09/2025 Henri Diane Multiple sclerosis G 35 Henri Diane III, MD [address] [place] [address] [place] [address] 09/10/2024 Henri Diane Multiple sclerosis G 35 ; Overweight E66.3 ; Subarachnoid hemorrhage due to ruptured aneurysm I60.8 ; Cerebral aneurysm I67.1 and History of arthroplasty of left knee Z96.652 Henri Diane III, MD [address] [place] [address] [place] [id number] 10/08/2024 Henri Diane Multiple sclerosis G 35 ; Overweight E66.3 ; Subarachnoid hemorrhage due to ruptured aneurysm I60.8 and Cerebral aneurysm I67.1 Henri Diane III, MD [address] [place] [address] [place] [id number] 11/12/2024 Henri Diane Multiple sclerosis G 35 ; Cerebral aneurysm I67.1 ; Subarachnoid hemorrhage due to ruptured aneurysm I60.8 ; Overweight E66.3 and History of arthroplasty of left knee Z96.652 Henri Diane III, MD [address] [place] [address] [place] [id number] 12/10/2024 Henri Diane Multiple sclerosis G 35 ; Torticollis M43.6 ; Cerebral aneurysm I67.1 ; Subarachnoid hemorrhage due to ruptured aneurysm I60.8 ; Overweight E66.3 and History of arthroplasty of left knee Z96.652 Henri Diane III, MD [address] [place] [address] [place] [id number] 01/07/2025 Henri Diane Multiple sclerosis G 35 ; Overweight E66.3 ; Subarachnoid hemorrhage due to ruptured aneurysm I60.8 ; Cerebral aneurysm I67.1 and History of arthroplasty of left knee Z96.652 Henri Diane III, MD [address] [place] [address] [place] [id number] 02/04/2025 Henri Cruzrne Multiple sclerosis G 35 ; Cerebral aneurysm I67.1 ; Subarachnoid hemorrhage due to ruptured aneurysm I60.8 ; Overweight E66.3 ; History of arthroplasty of left knee Z96.652 and Torticollis M43.6 Henri Diane III, MD [address] [place] [address] [place] [id number] 03/14/2025 Henri Diane Multiple sclerosis G 35 ; Cerebral aneurysm I67.1 ; Subarachnoid hemorrhage due to ruptured aneurysm I60.8 ; Labyrinthitis H83.09 ; Overweight E66.3 ; History of arthroplasty of left knee Z96.652 and Torticollis M43.6 Henri Diane III, MD [address] [place] [address] [place] [phone] 04/14/2025 Henri Diane Multiple sclerosis G 35 ; Cerebral aneurysm I67.1 ; Subarachnoid hemorrhage due to ruptured aneurysm I60.8 ; Overweight E66.3 and Torticollis M43.6 Henri Diane III, MD [address] [place] [id number] 05/19/2025 Henri Diane Multiple sclerosis G 35 ; Cerebral aneurysm I67.1 ; Subarachnoid hemorrhage due to ruptured aneurysm I60.8 ; Labyrinthitis H83.09 ; History of arthroplasty of left knee Z96.652 and Torticollis M43.6 Henri Diane III, MD [address] [place] [address] [place] [id number] 06/18/2025 Henri Diane Multiple sclerosis G 35 ; Cerebral aneurysm I67.1 ; Subarachnoid hemorrhage due to ruptured aneurysm I60.8 ; Overweight E66.3 ; History of arthroplasty of left knee Z96.652 and Torticollis M43.6 Henri Diane III, MD [address] [place] [address] [place] [id number] 07/15/2025 Henri Diane Multiple sclerosis G 35 ; Cerebral aneurysm I67.1 ; Labyrinthitis H83.09 ; Torticollis M43.6 and History of arthroplasty of left knee Z96.652 Henri Diane III, MD [address] [place] [address] [place] [id number] 08/11/2025 Henri Diane Multiple sclerosis G 35 ; Overweight E66.3 ; Cerebral aneurysm I67.1 ; Subarachnoid hemorrhage due to ruptured aneurysm I60.8 ; History of arthroplasty of left knee Z96.652 and Torticollis M43.6 Assessments Encounter Date Diagnosis (ICD Code) Assessment Notes Treat ment Notes Treatment Clinical Notes 09/09/2025 Multiple sclerosis (ICD-10 - G35) She was treated today with 300 mg of that drug intravenously over one hour without difficulty. She was observed afterwards and had no reactions. 09/10/2024 Overweight (ICD-10 - E66.3) Her body mass index is 27. We discussed her weight loss strategy in her diet and nutrition. I recommended weight loss at a rate of one half of a pound per week through a diet restricted in fat calories and sodium. 09/10/2024 Multiple sclerosis (ICD-10 - G35) She was treated today with 300 mg of that drug intravenously over one hour without difficulty. She was observed afterwards and had no reactions. 10/08/2024 Overweight (ICD-10 - E66.3) Her body mass index is 27. We discussed her weight loss strategy in her diet and nutrition. I recommended weight loss at a rate of one half of a pound per week through a diet restricted in fat calories and sodium. 10/08/2024 Multiple sclerosis (ICD-10 - G35) She was treated today with 300 mg of that drug intravenously over one hour without difficulty. She was observed afterwards and had no reactions. 11/12/2024 Multiple sclerosis (ICD-10 - G35) She was treated today with 300 mg of that drug intravenously over one hour without difficulty. She was observed afterwards and had no reactions. 11/12/2024 Cerebral aneurysm (ICD-10 - I67.1) She has had no symptoms from this. 12/10/2024 Multiple sclerosis (ICD-10 - G35) She was treated today with 300 mg of that drug intravenously over one hour without difficulty. She was observed afterwards and had no reactions. 12/10/2024 Torticollis (ICD-10 - M43.6) She remains under treatment with a marketing research analyst and a neurologist. 01/07/2025 Overweight (ICD-10 - E66.3) Her body mass index is 27. We discussed her weight loss strategy in her diet and nutrition. I recommended weight loss at a rate of one half of a pound per week through a diet restricted in fat calories and sodium. 01/07/2025 Multiple sclerosis (ICD-10 - G35) She was treated today with 300 mg of that drug intravenously over one hour without difficulty. She was observed afterwards and had no reactions. 02/04/2025 Multiple sclerosis (ICD-10 - G35) She was treated today with 300 mg of that drug intravenously over one hour without difficulty. She was observed afterwards and had no reactions. 02/04/2025 Cerebral aneurysm (ICD-10 - I67.1) She has had no symptoms from this. 03/14/2025 Multiple sclerosis (ICD-10 - G35) She was treated today with 300 mg of that drug intravenously over one hour without difficulty. She was observed afterwards and had no reactions. 03/14/2025 Cerebral aneurysm (ICD-10 - I67.1) She has had no symptoms from this. 04/14/2025 Multiple sclerosis (ICD-10 - G35) She was treated today with 300 mg of that drug intravenously over one hour without difficulty. She was observed afterwards and had no reactions. 04/14/2025 Cerebral aneurysm (ICD-10 - I67.1) She has had no symptoms from this. 05/19/2025 Multiple sclerosis (ICD-10 - G35) She was treated today with 300 mg of that drug intravenously over one hour without difficulty. She was observed afterwards and had no reactions. 05/19/2025 Cerebral aneurysm (ICD-10 - I67.1) She has had no symptoms from this. 06/18/2025 Multiple sclerosis (ICD-10 - G35) She was treated today with 300 mg of that drug intravenously over one hour without difficulty. She was observed afterwards and had no reactions. 06/18/2025 Cerebral aneurysm (ICD-10 - I67.1) She has had no symptoms from this. 07/15/2025 Multiple sclerosis (ICD-10 - G35) She was treated today with 300 mg of that drug intravenously over one hour without difficulty. She was observed afterwards and had no reactions. 07/15/2025 Cerebral aneurysm (ICD-10 - I67.1) She has had no symptoms from this. 08/11/2025 Overweight (ICD-10 - E66.3) Her body mass index is 28. She has gained 5 pounds.We discussed her weight loss strategy in her diet and nutrition. I recommended weight loss at a rate of one half of a pound per week through a diet restricted in fat calories and sodium. 08/11/2025 Multiple sclerosis (ICD-10 - G35) She was treated today with 300 mg of that drug intravenously over one hour without difficulty. She was observed afterwards and had no reactions. 09/10/2024 Subarachnoid hemorrhage due to ruptured aneurysm (ICD-10 - I60.8) She has had no further symptoms of headache or weakness suggestive of intracranial bleeding. 10/08/2024 Subarachnoid hemorrhage due to ruptured aneurysm (ICD-10 - I60.8) She has had no further symptoms of headache or weakness suggestive of intracranial bleeding. 11/12/2024 Subarachnoid hemorrhage due to ruptured aneurysm (ICD-10 - I60.8) She has had no further symptoms of headache or weakness suggestive of intracranial bleeding. 12/10/2024 Cerebral aneurysm (ICD-10 - I67.1) She has had no symptoms from this. 01/07/2025 Subarachnoid hemorrhage due to ruptured aneurysm (ICD-10 - I60.8) She has had no further symptoms of headache or weakness suggestive of intracranial bleeding. 02/04/2025 Subarachnoid hemorrhage due to ruptured aneurysm (ICD-10 - I60.8) She has had no further symptoms of headache or weakness suggestive of intracranial bleeding. 03/14/2025 Subarachnoid hemorrhage due to ruptured aneurysm (ICD-10 - I60.8) She has had no further symptoms of headache or weakness suggestive of intracranial bleeding. 04/14/2025 Subarachnoid hemorrhage due to ruptured aneurysm (ICD-10 - I60.8) She has had no further symptoms of headache or weakness suggestive of intracranial bleeding. 05/19/2025 Subarachnoid hemorrhage due to ruptured aneurysm (ICD-10 - I60.8) She has had no further symptoms of headache or weakness suggestive of intracranial bleeding. 06/18/2025 Subarachnoid hemorrhage due to ruptured aneurysm (ICD-10 - I60.8) She has had no further symptoms of headache or weakness suggestive of intracranial bleeding. 07/15/2025 Labyrinthitis (ICD-10 - H83.09) She has had very little vertigo lately and is doing quite well. She has medication to take if necessary. 08/11/2025 Cerebral aneurysm (ICD-10 - I67.1) She has had no symptoms from this. 09/10/2024 Cerebral aneurysm (ICD-10 - I67.1) She has had no symptoms from this. 10/08/2024 Cerebral aneurysm (ICD-10 - I67.1) She has had no symptoms from this. 11/12/2024 Overweight (ICD-10 - E66.3) Her body mass index is 27. We discussed her weight loss strategy in her diet and nutrition. I recommended weight loss at a rate of one half of a pound per week through a diet restricted in fat calories and sodium. 12/10/2024 Subarachnoid hemorrhage due to ruptured aneurysm (ICD-10 - I60.8) She has had no further symptoms of headache or weakness suggestive of intracranial bleeding. 01/07/2025 Cerebral aneurysm (ICD-10 - I67.1) She has had no symptoms from this. 02/04/2025 Overweight (ICD-10 - E66.3) Her body mass index is 28. She has gained 5 pounds.We discussed her weight loss strategy in her diet and nutrition. I recommended weight loss at a rate of one half of a pound per week through a diet restricted in fat calories and sodium. 03/14/2025 Labyrinthitis (ICD-10 - H83.09) She has had very little vertigo lately and is doing quite well. She has medication to take if necessary. 04/14/2025 Overweight (ICD-10 - E66.3) Her body mass index is 28. She has gained 5 pounds.We discussed her weight loss strategy in her diet and nutrition. I recommended weight loss at a rate of one half of a pound per week through a diet restricted in fat calories and sodium. 05/19/2025 Labyrinthitis (ICD-10 - H83.09) She has had very little vertigo lately and is doing quite well. She has medication to take if necessary. 06/18/2025 Overweight (ICD-10 - E66.3) Her body mass index is 28. She has gained 5 pounds.We discussed her weight loss strategy in her diet and nutrition. I recommended weight loss at a rate of one half of a pound per week through a diet restricted in fat calories and sodium. 07/15/2025 Torticollis (ICD-10 - M43.6) She remains under treatment with a marketing research analyst and a neurologist. 08/11/2025 Subarachnoid hemorrhage due to ruptured aneurysm (ICD-10 - I60.8) She has had no further symptoms of headache or weakness suggestive of intracranial bleeding. 09/10/2024 History of arthroplasty of left knee (ICD-10 - Z96.652) The recent surgery is healing well. 11/12/2024 History of arthroplasty of left knee (ICD-10 - Z96.652) The recent surgery is healing well. 12/10/2024 Overweight (ICD-10 - E66.3) Her body mass index is 27. We discussed her weight loss strategy in her diet and nutrition. I recommended weight loss at a rate of one half of a pound per week through a diet restricted in fat calories and sodium. 01/07/2025 History of arthroplasty of left knee (ICD-10 - Z96.652) The recent surgery is healing well. 02/04/2025 History of arthroplasty of left knee (ICD-10 - Z96.652) The recent surgery is healing well. 03/14/2025 Overweight (ICD-10 - E66.3) Her body mass index is 28. She has gained 5 pounds.We discussed her weight loss strategy in her diet and nutrition. I recommended weight loss at a rate of one half of a pound per week through a diet restricted in fat calories and sodium. 04/14/2025 Torticollis (ICD-10 - M43.6) She remains under treatment with a marketing research analyst and a neurologist. 05/19/2025 History of arthroplasty of left knee (ICD-10 - Z96.652) The recent surgery is healing well. 06/18/2025 History of arthroplasty of left knee (ICD-10 - Z96.652) The recent surgery is healing well. 07/15/2025 History of arthroplasty of left knee (ICD-10 - Z96.652) The recent surgery is healing well. 08/11/2025 History of arthroplasty of left knee (ICD-10 - Z96.652) The recent surgery is healing well. 12/10/2024 History of arthroplasty of left knee (ICD-10 - Z96.652) The recent surgery is healing well. 02/04/2025 Torticollis (ICD-10 - M43.6) She remains under treatment with a marketing research analyst and a neurologist. 03/14/2025 History of arthroplasty of left knee (ICD-10 - Z96.652) The recent surgery is healing well. 05/19/2025 Torticollis (ICD-10 - M43.6) She remains under treatment with a marketing research analyst and a neurologist. 06/18/2025 Torticollis (ICD-10 - M43.6) She remains under treatment with a marketing research analyst and a neurologist. 08/11/2025 Torticollis (ICD-10 - M43.6) She remains under treatment with a marketing research analyst and a neurologist.Torticol lis is improving 03/14/2025 Torticollis (ICD-10 - M43.6) She remains under treatment with a marketing research analyst and a neurologist. Plan Of Treatment Next Appt Details Provider Name:Henri Morane , 10/07/2025 09:00:00 AM, [address] [place] [address] [address], [place], [phone], Provider Name:Henri Diane , 11/04/2025 09:30:00 AM, [address] [place] [address] [address], [place], [phone], Insurance Providers Payer Name Payer Address Payer Phone Subscriber Number Group Number Insured Name Patient Relationship to Insured Coverage Start Date Coverage End Date [facility] [address] [place] [id number] [phone] [id number] Maryse George Self - patient is the insured Medical (General) History Medical History History ICD Code subarachnoid hemorrhage 2011 [id number] Tubal Ligation chronic relapsing Multiple Sclerosis cerebral aneurysm chronic right maxillary sinusitis Torticollis Surgical History Surgery Date(Month/Year) septoplasty, Dr. Cooley 2 sections tubal ligation
== END 2025-09-09 10:09 | disposition home or self-care (01) ==
LOC: HO.HSM 09:32
PROVIDERS: PCP Internal Medicine; Visit Provider Psychiatry & Neurology Neurology
DX: G35.D Multiple sclerosis, unspecified (principal); G24.3 Spasmodic torticollis; I60.9 Nontraumatic subarachnoid hemorrhage, unspecified
CPT/HCPCS: 99214

== ENCOUNTER 2025-10-17 10:13 | Outpatient (REF) | payer OTHER, SELFPAY | END 2025-10-17 10:14 | disposition home or self-care (01) | LOC: HO.LAB 10:13 | PROVIDERS: PCP Internal Medicine; Visit Provider Registered Nurse | DX: G35.D Multiple sclerosis, unspecified (principal) | CPT/HCPCS: 36415; 86711 ==